=== PATIENT | female | born 1980 | race Caucasian/White ===

== ENCOUNTER 2016-07-09 09:58 | Inpatient (IN) | payer OTHER ==
[2016-07-09 10:05] VITALS: BMI 19.7
--- NOTE | 2016-07-09 10:07 | PDOC ---
History of Present Illness <Mounika Epps - Last Filed: 07/09/16 13:15> - General History Source: Patient Exam Limitations: No Limitations - History of Present Illness Initial Comments: 07/09/16 10:56 The pt is a 35 year old female with a significant PMH of Common Variable Immunodeficiency, membranous glomerulopathy, chronic migraines, asthma, HDL who presents to the ED complaining of fever, chills, headache that started 5 days ago. Temp at home today was 102F. She has been taking Tylenol since her fever started and visited her PCP yesterday and was told that her WBC is low and to come to ED if her symptoms worsen. She also has been vomiting everyday, non bloody, non bilious, has dizziness and swollen gums on left side. She denies chest pain, SOB, abdominal pain, dysuria, N/V, diarrhea. <Linda Andersen - Last Filed: 07/09/16 14:26> - General Chief Complaint: Respiratory Stated Complaint: FEVER (PCP SENT) Time Seen by Provider: 07/09/16 10:04 Past History - Past Medical History Comment:: Common Variable Immunodeficiency, membranous glomerulonephropathy <Mounika Epps - Last Filed: 07/09/16 13:15> - Past Medical History Anemia: No Asthma: Yes Cancer: No Cardiac Disorders: Yes (MURMUR) CVA: (H/O MIGRAINE HEADACHES) COPD: No CHF: No Dementia: No Diabetes: No GI Disorders: No Disorders: Yes (NEPHROTIC SYNDROME) HTN: No Hypercholesterolemia: No Liver Disease: No Psychiatric Problems: Yes (depression) Suicide Attempt (Hx): No Seizures: No Thyroid Disease: No Other medical history: mebraines glumeral nephritis, common variable immuny deficency - Surgical History Abdominal Surgery: No Appendectomy: Yes Cardiac Surgery: No Cholecystectomy: No Lung Surgery: No Neurologic Surgery: No Orthopedic Surgery: No - Psycho/Social/Smoking Cessation Hx Anxiety: No Suicidal Ideation: No Smoking Status: No Smoking History: Never smoked Years of Tobacco Use: 0 Have you smoked in the past 12 months: No Number of Cigarettes Smoked Daily: 0 Cigars Per Day: 0 Information on smoking cessation initiated: No Hx Alcohol Use: No Drug/Substance Use Hx: No Substance Use Type: None Hx Substance Use Treatment: No <Linda Andersen - Last Filed: 07/09/16 14:26> - Past Medical History Allergies/Adverse Reactions: Allergies Allergy/AdvReac Type Severity Reaction Status Date / Time theophylline [Theophylline] Allergy Severe Verified 07/09/16 10:00 metoclopramide HCl Allergy Verified 07/09/16 10:00 [From Reglan] Metronidazole HCl Allergy Rash Verified 07/09/16 10:00 [From Flagyl] Home Medications: Ambulatory Orders Immun Glob G(IgG)/Pro/Iga 0-50 [Hizentra 2 Gram/10 ml Vial] 50 ml SQ WEEKLY #0 ml 04/04/12 Cyclosporine [Restasis] 1 drop OU BID 07/04/15 Mometasone/Formoterol [Dulera 100 Mcg/5 Mcg Inhaler] 2 puff IH BID 07/04/15 Review of Systems - Review of Systems Constitutional: Yes: Fever, Malaise, Weakness HEENTM: No: Throat Pain Respiratory: No: Shortness of Breath, Wheezing Cardiac (ROS): No: Chest Pain, Irregular Heart Rate, Palpitations ABD/GI: Yes: Vomiting (once today, non bilious, non bloody). No: Diarrhea, Nausea : No: Dysuria, Urgency Musculoskeletal: No: Muscle Pain Neurological: Yes: Headache <Linda Andersen - Last Filed: 07/09/16 14:26> *Physical Exam - Vital Signs Last Vital Signs Temp Pulse Resp BP Pulse Ox 100.1 F H 130 H 20 110/80 99 07/09/16 11:30 07/09/16 11:30 07/09/16 11:30 07/09/16 11:30 07/09/16 11:30 <Mounika Epps - Last Filed: 07/09/16 13:15> - Vital Signs Last Vital Signs Temp Pulse Resp BP Pulse Ox 99.8 F H 150 H 20 113/99 100 07/09/16 10:01 07/09/16 10:01 07/09/16 10:01 07/09/16 10:01 07/09/16 10:01 - Physical Exam Comments: 07/09/16 10:45 GENERAL: The patient is awake, alert, and fully oriented, in no acute distress. HEAD: Normal with no signs of trauma. EYES: PERRL, extraocular movements intact, sclera anicteric, conjunctiva clear. No ptosis. ENT: Ears normal, nares patent, oropharynx clear without exudates, moist mucous membranes. NECK: Trachea midline, full range of motion, supple. LUNGS: Breath sounds equal, clear to auscultation bilaterally, no wheezes, no crackles, no accessory muscle use. HEART: tachycardic, S1, S2 without murmur, rub or gallop. ABDOMEN: Soft, nontender, nondistended, normoactive bowel sounds, no guarding, no rebound, no hepatosplenomegaly, no masses. EXTREMITIES: 2+ pulses, warm, well-perfused, no edema. NEUROLOGICAL: Normal speech, no facial asymmetry, gait not observed. PSYCH: Normal mood, normal affect. SKIN: Warm, dry, normal turgor, no rashes or lesions noted <JuandougAndrewNicjhonnyLinda - Last Filed: 07/09/16 14:26> Heart Score/ECG Review - History History: Moderately suspicious - Electrocardiogram EKG: Normal - Age Age: </= 45 - Risk Factors Risk Factors Heart Score: Yes Hx Hypercholesterolemia Based on the list above the patient has:: 1-2 risk factors - ECG Intrepretation Rhythm: Regular Rhythm - [place]: Normal - ECG Impressions Normal ECG: No Non-specific ST Elevation: No Ischemic Changes: No Tachycardia: Sinus <JarredNicjhonnyLinda - Last Filed: 07/09/16 14:26> ED Treatment Course - LABORATORY CBC & Chemistry Diagram: 07/09/16 10:50 07/09/16 10:50 - ADDITIONAL ORDERS Additional order review: Laboratory Results 07/09/16 07/09/16 07/09/16 10:50 10:50 10:50 Sodium 138 Potassium 3.6 Chloride 101 Carbon Dioxide 28 Anion Gap 9 BUN 5 L D Creatinine 0.6 Creat Clearance w eGFR > 60 Random Glucose 106 Lactic Acid 0.670 Calcium 8.5 Total Bilirubin 0.5 D AST 12 L D ALT 17 D Alkaline Phosphatase 100 Total Protein 6.5 Albumin 3.3 L Serum , Qual Negative 07/09/16 10:50 RBC 4.73 MCV 78.3 L MCHC 34.1 RDW 12.6 MPV 7.6 Neutrophils % 2.0 L Lymphocytes % 47.0 H D Monocytes % 47.0 H D Eosinophils % 2.0 - Medications Given in the ED: ED Medications Discontinued Medications Generic Name Dose Route Start Last Admin Trade Name Enoc PRN Reason Stop Dose Admin Acetaminophen 650 mg 07/09/16 11:00 07/09/16 11:09 Tylenol - PO 07/09/16 11:01 650 mg ONCE ONE Administration Sodium Chloride 1,000 mls @ 1,000 mls/hr 07/09/16 10:53 07/09/16 11:09 Normal Saline - IV 07/09/16 11:52 1,000 mls/hr ASDIR STA Administration <Mounika Epps - Last Filed: 07/09/16 13:15> - LABORATORY CBC & Chemistry Diagram: 07/09/16 10:50 07/09/16 10:50 <Linda Andersen - Last Filed: 07/09/16 14:26> Medical Decision Making - Medical Decision Making 07/09/16 11:08 Ordered CMP, BMP, LA, Tylenol, 1L NS, EKG, test 07/09/16 13:12 THe pt was signed off to admitting team by Dr. Epps <Linda Andersen - Last Filed: 07/09/16 14:26> *DC/Admit/Observation/Transfer - Discharge Dispostion Admit: Yes <Mounika Epps - Last Filed: 07/09/16 13:15> <Linda Andersen - Last Filed: 07/09/16 14:26> Diagnosis at time of Disposition: Neutropenic fever - Discharge Dispostion Condition at time of disposition: Stable - Referrals
--- NOTE | 2016-07-09 10:08 | PDOC ---
Attending Attestation - Resident Resident Name: GaneshLinda - ED Attending Attestation I have performed the following: I have examined & evaluated the patient, The case was reviewed & discussed with the resident, I agree w/resident's findings & plan, Exceptions are as noted - HPI HPI: 35 yo F history CVID (on home immunoglobulin injections) presenting with flu. She was sent by primary care physician after found to have low WBC count. She has had fever with nausea, stomach upset, diarrhea. No vomiting. Denies cp, SOB. She saw her PMD, who ordered a CXR (negative), flu swab (negative), and labs. Labs showed low WBC. Patient sent for evaluation for poss neutropenic fever. - Physicial Exam PE: GENERAL: Awake, alert, and fully oriented, in no acute distress. Well-appearing. HEAD: No signs of trauma EYES: PERRLA, EOMI, sclera anicteric, conjunctiva clear ENT: Auricles normal inspection, hearing grossly normal, nares patent, oropharynx clear without exudates. Dry mucosa NECK: Normal ROM, supple, no lymphadenopathy, JVD, or masses LUNGS: Breath sounds equal, clear to auscultation bilaterally. No wheezes, and no crackles HEART: Tachycardic, normal S1 and S2, no murmurs, rubs or gallops ABDOMEN: Soft, nontender, normoactive bowel sounds. No guarding, no rebound. No masses EXTREMITIES: Normal range of motion, no edema. No clubbing or cyanosis. No cords, erythema, or tenderness NEUROLOGICAL: Cranial nerves II through XII grossly intact. Normal speech, normal gait SKIN: Warm, Dry, normal turgor, no rashes or lesions noted. - Medical Decision Making Patient with neutropenic fever, history CVID. CHAUDHARY treated with tylenol, imitrex ( normally she takes maxalt at home). Zofran for nausea. Tachycardia improving with IV fluids. Will give cefepime empirically. Will consult with ID, hematology. For admission.
[2016-07-09] MEDS ORDERED: SODIUM CHLORIDE 1,000 ML IV STA (10:53)
[2016-07-09] MEDS ORDERED: ACETAMINOPHEN 325 MG TABLET (FP) PO ONE (11:00)
[2016-07-09] MEDS ORDERED: ACETAMINOPHEN 325 MG TABLET (FP) ONE (11:01)
[2016-07-09 11:04] LABS: MCH 26.7 pg (25.7-33.7); MCHC 34.1 g/dl (32.0-36.0); MEAN CELL VOLUME 78.3 fl (80-96); MEAN PLT VOLUME 7.6 fl (7.5-11.1); PLATELET COUNT 180 K/MM3 (134-434); RDW 12.6 % (11.6-15.6); WHITE BLOOD COUNT 2.3 K/mm3 (4.0-10.0)
[2016-07-09 11:49] LABS: ALBUMIN 3.3 g/dl (3.4-5.0); ALK PHOS 100 U/L (45-117); ANION GAP 9 (8-16); BILIRUBIN,TOTAL 0.5 mg/dL (0.2-1.0); CALCIUM 8.5 mg/dL (8.5-10.1); CO2 28 mmol/L (21-32); CREATININE 0.6 mg/dL (0.55-1.02); GLUCOSE,RANDOM 106 mg/dL (74-106); SGOT/AST 12 U/L (15-37); SGPT/ALT 17 U/L (12-78); TOT PROT 6.5 g/dl (6.4-8.2)
[2016-07-09 12:02] LABS: PLATELET ESTIMATE ADEQUATE (NORMAL)
[2016-07-09] MEDS ORDERED: ONDANSETRON 4 MG/2 ML VIAL IVPUSH ONE (12:14)
[2016-07-09] MEDS ORDERED: TUBERCULIN PPD 5 TU/0.1ML SYRINGE (IN PATIENT USE ONLY) ID ONE (12:15)
[2016-07-09] MEDS ORDERED: ONDANSETRON 4 MG/2 ML VIAL ONE (12:22)
[2016-07-09] MEDS ORDERED: CEFEPIME HCL 2 GM VIAL (RESTRICTED TO ID) IVPB ONE (12:29)
[2016-07-09 12:38] LABS: URINE APPEARANCE CLEAR; URINE BILIRUBIN NEGATIVE (NEGATIVE); URINE BLOOD NEGATIVE (NEGATIVE); URINE GLUCOSE (UA) NEGATIVE (NEGATIVE); URINE KETONE TRACE (NEGATIVE); URINE NITRITE NEGATIVE (NEGATIVE); URINE UROBILINOGEN 2.0 E.U/dl E.U./dl (0.2-1.0)
[2016-07-09 12:43] LABS: URINE COLOR DK YELLOW; URINE LEUK ESTERASE TRACE (NEGATIVE); URINE PROTEIN 1+ (NEGATIVE)
[2016-07-09 12:49] LABS: URINE MUCUS MANY; URINE RBC 1 /hpf (0-3); URINE WBC 4 /hpf (3-5)
--- NOTE | 2016-07-09 13:36 | HP ---
Admitting History and Physical - Primary Care Physician PCP: Patricia Todd - Admission Chief Complaint: I'm having fevers History of Present Illness: Ms Cobb is a 35 year old female who comes in with fevers. She says the fevers began 1 week ago. She states that they were as high as 102.5. She had headache associated with the fevers. She had nausea with vomiting as well. Because of this, she was unable to eat much food. She also had myalgias associated with it. She denies rhinorrhea, congestion, sore throat, or productive cough. She saw her author's agent who prescribed augmentin, however she was unable to take it secondary to the nausea. The fevers and headaches continued and she came in for further evaluation. She denies lightheadedness, dizziness, passing out, chest pain, shortness of breath, abdominal pain, diarrhea, pain or difficulty urinating, or swelling. History Source: Patient Limitations to Obtaining History: No Limitations - Past Medical History MECHANIC AND WELDER: Yes: Migraine Pulmonary: Yes: Asthma Renal/: Yes: Other (membranous glomerulonephritis-remission) ...LMP: 06/18/15 Rheumatology: Yes: Other (Common Variable Immunodeficiency) - Past Surgical History Past Surgical History: Yes: Appendectomy - Smoking History Smoking history: Never smoked Have you smoked in the past 12 months: No Aproximately how many cigarettes per day: 0 - Alcohol/Substance Use Hx Alcohol Use: No History of Substance Use: reports: None - Social History ADL: Independent History of Recent Travel: No Home Medications - Allergies Allergies/Adverse Reactions: Allergies Allergy/AdvReac Type Severity Reaction Status Date / Time theophylline [Theophylline] Allergy Severe Verified 07/09/16 10:00 metoclopramide HCl Allergy Verified 07/09/16 10:00 [From Reglan] Metronidazole HCl Allergy Rash Verified 07/09/16 10:00 [From Flagyl] - Home Medications Home Medications: Ambulatory Orders Immun Glob G(IgG)/Pro/Iga 0-50 [Hizentra 2 Gram/10 ml Vial] 50 ml SQ WEEKLY #0 ml 04/04/12 Cyclosporine [Restasis] 1 drop OU BID 07/04/15 Mometasone/Formoterol [Dulera 100 Mcg/5 Mcg Inhaler] 2 puff IH BID 07/04/15 Family Disease History - Family Disease History Family Disease History: Diabetes: Father, Other: Mother (HTN, Pulm HTN) Review of Systems Findings/Remarks: Full review of systems obtained, as per HPI and otherwise negative. Physical Examination Vital Signs: Vital Signs Temperature 100.1 F H 07/09/16 11:30 Pulse Rate 114 H 07/09/16 12:35 Respiratory Rate 18 07/09/16 12:35 Blood Pressure 114/63 07/09/16 12:35 O2 Sat by Pulse Oximetry (%) 99 07/09/16 12:35 Constitutional: Yes: Well Nourished, Calm, Mild Distress Eyes: Yes: Conjunctiva Clear, EOM Intact, PERRL HENT: Yes: Atraumatic, Normocephalic Cardiovascular: Yes: Tachycardia. No: Pulse Irregular, Gallop, Murmur, Rub Respiratory: Yes: Regular, CTA Bilaterally. No: Rales, Rhonchi, Wheezes Gastrointestinal: Yes: Normal Bowel Sounds, Soft. No: Distention, Tenderness Extremities: Yes: WNL Edema: No Labs: Laboratory Results - last 24 hr 07/09/16 07/09/16 07/09/16 10:50 10:50 10:50 WBC 2.3 L D RBC 4.73 Hgb 12.6 D Hct 37.1 MCV 78.3 L MCHC 34.1 RDW 12.6 Plt Count 180 D MPV 7.6 Neutrophils % 2.0 L Lymphocytes % 47.0 H D Monocytes % 47.0 H D Eosinophils % 2.0 Band Neutrophils 1.0 Reactive Lymphocytes 2 Platelet Estimate Adequate Platelet Comment No clumping noted Sodium 138 Potassium 3.6 Chloride 101 Carbon Dioxide 28 Anion Gap 9 BUN 5 L D Creatinine 0.6 Creat Clearance w eGFR > 60 Random Glucose 106 Lactic Acid 0.670 Calcium 8.5 Total Bilirubin 0.5 D AST 12 L D ALT 17 D Alkaline Phosphatase 100 Total Protein 6.5 Albumin 3.3 L Serum , Qual Urine Color Urine Appearance Urine pH Ur Specific Mallie Urine Protein Urine Glucose (UA) Urine Ketones Urine Blood Urine Nitrite Urine Bilirubin Urine Urobilinogen Ur Leukocyte Esterase Urine RBC Urine WBC Ur Epithelial Cells Urine Mucus 07/09/16 07/09/16 10:50 12:23 WBC RBC Hgb Hct MCV MCHC RDW Plt Count MPV Neutrophils % Lymphocytes % Monocytes % Eosinophils % Band Neutrophils Reactive Lymphocytes Platelet Estimate Platelet Comment Sodium Potassium Chloride Carbon Dioxide Anion Gap BUN Creatinine Creat Clearance w eGFR Random Glucose Lactic Acid Calcium Total Bilirubin AST ALT Alkaline Phosphatase Total Protein Albumin Serum , Qual Negative Urine Color Dk yellow Urine Appearance Clear Urine pH 5.0 Ur Specific Mallie 1.024 Urine Protein 1+ H Urine Glucose (UA) Negative Urine Ketones Trace H Urine Blood Negative Urine Nitrite Negative Urine Bilirubin Negative Urine Urobilinogen 2.0 e.u/dl H Ur Leukocyte Esterase Trace H Urine RBC 1 Urine WBC 4 Ur Epithelial Cells Moderate Urine Mucus Many Problem List - Problems (1) Neutropenic fever Assessment/Plan: -patient presents with neutropenic fever -ID consulted -suspect viral, however may be bacterial -given cefepime in the ED, continue per ID Code(s): D70.9 - NEUTROPENIA, UNSPECIFIED R50.81 - FEVER PRESENTING WITH CONDITIONS CLASSIFIED ELSEWHERE (2) Common variable immunodeficiency Assessment/Plan: -consult hematology and rheumatology -continue hyzentra unless otherwise indicated by above consultants Code(s): D83.9 - COMMON VARIABLE IMMUNODEFICIENCY, UNSPECIFIED (3) Intractable migraine Assessment/Plan: -case d/w neurology -imitrex -if persistent, will need head CT Code(s): G43.919 - MIGRAINE, UNSP, INTRACTABLE, WITHOUT STATUS MIGRAINOSUS Qualifiers: Migraine type: abdominal Qualified Code(s): G43.D1 - Abdominal migraine , intractable (4) Asthma Assessment/Plan: -continue dulera -not in exacerbation Code(s): J45.909 - UNSPECIFIED ASTHMA, UNCOMPLICATED
--- NOTE | 2016-07-09 13:40 | PN ---
Progress Note, Physician Chief Complaint: ID Full note dictated 35 year old female CVID gets sq immunoglob injected weekly presents with now 6 days intermittent fevers and chills. Saw her PMD yesterday and told had low WBC count. Blood cultures drawn at PMD. Notes intermittent headaches. NO couph coryza abd pain diarrhea did have few episodes of vomiting this subsided. Lives with family and no one else ill. No travel or HIV risls tested neg in past. No sorethroat Influenza screen was neg and throat rapid strep neg. Pets 4 dogs and 2 cats. - Current Medication List Current Medications: Active Medications Acetaminophen (Tylenol -) 650 mg PO Q4H PRN PRN Reason: FEVER OR PAIN Sodium Chloride (Normal Saline -) 1,000 mls @ 75 mls/hr IV ASDIR TING Non-Formulary Medication (Cyclosporine [Restasis]) 1 drop OU BID TING Non-Formulary Medication (Immun Glob G(Igg)/Pro/Iga 0-50 [Hizentra 2 Gram/10 Ml Vial]) 50 ml SQ FR TING Non-Formulary Medication (Mometasone/Formoterol [Dulera 100 Mcg/5 Mcg Inhaler]) 2 puff IH BID TING Ondansetron HCl (Zofran Injection) 4 mg IVPB Q6H PRN PRN Reason: NAUSEA Oxycodone HCl (Roxicodone -) 5 mg PO Q6H PRN PRN Reason: PAIN - Objective Vital Signs: Vital Signs Temperature 100.1 F H 07/09/16 11:30 Pulse Rate 114 H 07/09/16 12:35 Respiratory Rate 18 07/09/16 12:35 Blood Pressure 114/63 07/09/16 12:35 O2 Sat by Pulse Oximetry (%) 99 07/09/16 12:35 Constitutional: Yes: Thin Eyes: Yes: WNL, Conjunctiva Clear HENT: Yes: Other (TMs look normal). No: Pharyngeal Erythema Neck: Yes: WNL, Supple, Other (Few cervical tender nodes anterior) Respiratory: Yes: WNL, Regular, CTA Bilaterally Gastrointestinal: Yes: WNL, Normal Bowel Sounds, Soft. No: Tenderness Edema: No Problem List - Problems (1) FUO (fever of unknown origin) Code(s): R50.9 - FEVER, UNSPECIFIED (2) Viral illness Code(s): B34.9 - VIRAL INFECTION, UNSPECIFIED (3) Common variable immunodeficiency Code(s): D83.9 - COMMON VARIABLE IMMUNODEFICIENCY, UNSPECIFIED Assessment/Plan Microbiology Laboratory Tests 07/09/16 07/09/16 07/09/16 10:50 10:50 12:23 WBC 2.3 L D Plt Count 180 D Neutrophils % 2.0 L Lymphocytes % 47.0 H D Monocytes % 47.0 H D Reactive Lymphocytes 2 BUN 5 L D Creatinine 0.6 Total Bilirubin 0.5 D AST 12 L D ALT 17 D Urine RBC 1 Urine WBC 4 Assessment Suspect viral illness in the setting of CVIG. Given Augmentin but never took it. High index of suspicion for infectious etiology given immune dysregulation. NO infiltrate seen Of note Leukopenic with low ANC count but not a matter of bone marrow production but increase in lymphs and monos most likely secondary to viral illness. Consider CMV EBV Toxo because of her cats. Empiric coverage with Cefepime and obtain hematology evaluation Jd DE LOS SANTOS
[2016-07-09] MEDS ORDERED: CEFEPIME 100 ML IVPB ONE (13:53)
[2016-07-09] MEDS: SODIUM CHLORIDE 1,000 ML IV SCH ×2 (13:54→20:57)
--- NOTE | 2016-07-09 13:55 | CONSULT ---
Consult - text type - Consultation Consultation Note: The pt is a 35 year old female with a significant PMH of Common Variable Immunodeficiency, membranous glomerulonephritis, chronic migraines, asthma, Hyperlipidemia, who presents to the ED complaining of fever, chills, headache that started 5 days ago. Temp at home today was 102F. She has been taking Tylenol since her fever started and visited her PCP yesterday and was told that her WBC is low and to come to ED if her symptoms worsen. She also has been vomiting everyday,associated with her migraines. She denies chest pain, SOB, abdominal pain, dysuria, N/V, diarrhea. - Past Medical History Asthma: Yes Cardiac Disorders: Yes (MURMUR) CVA: (H/O MIGRAINE HEADACHES) Disorders: Yes (NEPHROTIC SYNDROME) Psychiatric Problems: Yes (depression) Other medical history: mebraines glumeral nephritis, common variable immuny deficency - Surgical History Appendectomy: Yes - Psycho/Social/Smoking Cessation Hx Smoking History: Never smoked - Past Medical History Comment:: Common Variable Immunodeficiency, membranous glomerulonephropathy h/o acquired hemophilia - Past Medical History Allergies/Adverse Reactions: Allergies Allergy/AdvReac Type Severity Reaction Status Date / Time theophylline [Theophylline] Allergy Severe Verified 07/09/16 10:00 metoclopramide HCl Allergy Verified 07/09/16 10:00 [From Reglan] Metronidazole HCl Allergy Rash Verified 07/09/16 10:00 [From Flagyl] Home Medications: Ambulatory Orders Immun Glob G(IgG)/Pro/Iga 0-50 [Hizentra 2 Gram/10 ml Vial] 50 ml SQ WEEKLY #0 ml 04/04/12 Cyclosporine [Restasis] 1 drop OU BID 07/04/15 Mometasone/Formoterol [Dulera 100 Mcg/5 Mcg Inhaler] 2 puff IH BID 07/04/15 Current Medications Acetaminophen (Tylenol -) 650 mg PO Q4H PRN PRN Reason: FEVER OR PAIN Sodium Chloride (Normal Saline -) 1,000 mls @ 75 mls/hr IV ASDIR TING Non-Formulary Medication (Cyclosporine [Restasis]) 1 drop OU BID TING Non-Formulary Medication (Immun Glob G(Igg)/Pro/Iga 0-50 [Hizentra 2 Gram/10 Ml Vial]) 50 ml SQ FR TING Non-Formulary Medication (Mometasone/Formoterol [Dulera 100 Mcg/5 Mcg Inhaler]) 2 puff IH BID TING Ondansetron HCl (Zofran Injection) 4 mg IVPB Q6H PRN PRN Reason: NAUSEA Oxycodone HCl (Roxicodone -) 5 mg PO Q6H PRN PRN Reason: PAIN - Vital Signs Last Vital Signs Temp Pulse Resp BP Pulse Ox 99.8 F H 150 H 20 113/99 100 07/09/16 10:01 07/09/16 10:01 07/09/16 10:01 07/09/16 10:01 07/09/16 10:01 HEENT: LUNA, EOM Intact Oropharynx: No thrush, No mucositisy Cor: RSR, No murmurs, No gallops Lungs: Clear to P&A Abd: Soft, Normal bowel sounds, No organomegaly Ext:No significant edema Skin: No rashes, Integument intact Abnormal Lab Results 07/09/16 07/09/16 07/09/16 10:50 10:50 12:23 WBC 2.3 L D MCV 78.3 L Neutrophils % 2.0 L Lymphocytes % 47.0 H D Monocytes % 47.0 H D BUN 5 L D AST 12 L D Albumin 3.3 L Urine Protein 1+ H Urine Ketones Trace H Urine Urobilinogen 2.0 e.u/dl H Ur Leukocyte Esterase Trace H A/P 35 y/o patient wtih h/o common variable immunodeficiency, on SC IgG replacements at home, also with membranous glomerulonephritis with h/o rituxan last in 09/14, now comes in with fevers. No localizing signs/symptoms CBC shows neutropenia with relative lympho/monocytosis also reports tender gums reports migraine headaches and nausea/vomiting will review smear check immunoglobulin levels disucssed with ID team consider neurology consult
[2016-07-09] MEDS ORDERED: SUMAtriptan SUCCINATE 25 MG TABLET PO ONE (14:14)
--- NOTE | 2016-07-09 15:10 | CONSULT ---
Consult - text type - Consultation Consultation Note: Neurology The pt is a 35 year old female with a significant PMH of Common Variable Immunodeficiency, membranous glomerulopathy, chronic migraines, asthma, HDL who presents to the ED complaining of fever, chills, headache that started 5 days ago. She tpyically takes Maxalt which often works for her at 10mg. She had tried Fioricet in the past and caused a rash. Her headaches are episodic and does not require daily medication. Past History - Past Medical History Comment:: Common Variable Immunodeficiency, membranous glomerulonephropathy - Past Medical History Anemia: No Asthma: Yes Cancer: No Cardiac Disorders: Yes (MURMUR) CVA: (H/O MIGRAINE HEADACHES) COPD: No CHF: No Dementia: No Diabetes: No GI Disorders: No Disorders: Yes (NEPHROTIC SYNDROME) HTN: No Hypercholesterolemia: No Liver Disease: No Psychiatric Problems: Yes (depression) Suicide Attempt (Hx): No Seizures: No Thyroid Disease: No Other medical history: mebraines glumeral nephritis, common variable immuny deficency - Surgical History Abdominal Surgery: No Appendectomy: Yes Cardiac Surgery: No Cholecystectomy: No Lung Surgery: No Neurologic Surgery: No Orthopedic Surgery: No - Psycho/Social/Smoking Cessation Hx Anxiety: No Suicidal Ideation: No Smoking Status: No Smoking History: Never smoked Years of Tobacco Use: 0 Have you smoked in the past 12 months: No Number of Cigarettes Smoked Daily: 0 Cigars Per Day: 0 Information on smoking cessation initiated: No Hx Alcohol Use: No Drug/Substance Use Hx: No Substance Use Type: None Hx Substance Use Treatment: No Allergies/Adverse Reactions: Allergies Allergy/AdvReac Type Severity Reaction Status Date / Time theophylline [Theophylline] Allergy Severe Verified 07/09/16 10:00 metoclopramide HCl Allergy Verified 07/09/16 10:00 [From Reglan] Metronidazole HCl Allergy Rash Verified 07/09/16 10:00 [From Flagyl] Home Medications: Ambulatory Orders Immun Glob G(IgG)/Pro/Iga 0-50 [Hizentra 2 Gram/10 ml Vial] 50 ml SQ WEEKLY #0 ml 04/04/12 Cyclosporine [Restasis] 1 drop OU BID 07/04/15 Mometasone/Formoterol [Dulera 100 Mcg/5 Mcg Inhaler] 2 puff IH BID 07/04/15 Review of Systems - Review of Systems Constitutional: Yes: Fever, Malaise, Weakness HEENTM: No: Throat Pain Respiratory: No: Shortness of Breath, Wheezing Cardiac (ROS): No: Chest Pain, Irregular Heart Rate, Palpitations ABD/GI: Yes: Vomiting (once today, non bilious, non bloody). No: Diarrhea, Nausea : No: Dysuria, Urgency Musculoskeletal: No: Muscle Pain Neurological: Yes: Headache *Physical Exam Last Vital Signs Temp Pulse Resp BP Pulse Ox 99.8 F H 150 H 20 113/99 100 07/09/16 10:01 07/09/16 10:01 07/09/16 10:01 07/09/16 10:07/09/16 10:01 GENERAL: The patient is awake, alert, and fully oriented, in no acute distress. HEAD: Normal with no signs of trauma. EYES: PERRL, extraocular movements intact, sclera anicteric, conjunctiva clear. No ptosis. ENT: Ears normal, nares patent, oropharynx clear without exudates, moist mucous membranes. NECK: Trachea midline, full range of motion, supple. LUNGS: Breath sounds equal, clear to auscultation bilaterally, no wheezes, no crackles, no accessory muscle use. HEART: tachycardic, S1, S2 without murmur, rub or gallop. ABDOMEN: Soft, nontender, nondistended, normoactive bowel sounds, no guarding, no rebound, no hepatosplenomegaly, no masses. EXTREMITIES: 2+ pulses, warm, well-perfused, no edema. NEUROLOGICAL: Normal speech, no facial asymmetry, gait not observed. PSYCH: Normal mood, normal affect. SKIN: Warm, dry, normal turgor, no rashes or lesions noted Laboratory Results 07/09/16 07/09/16 07/09/16 10:50 10:50 10:50 Sodium 138 Potassium 3.6 Chloride 101 Carbon Dioxide 28 Anion Gap 9 BUN 5 L D Creatinine 0.6 Creat Clearance w eGFR > 60 Random Glucose 106 Lactic Acid 0.670 Calcium 8.5 Total Bilirubin 0.5 D AST 12 L D ALT 17 D Alkaline Phosphatase 100 Total Protein 6.5 Albumin 3.3 L Serum , Qual Negative 07/09/16 10:50 RBC 4.73 MCV 78.3 L MCHC 34.1 RDW 12.6 MPV 7.6 Neutrophils % 2.0 L Lymphocytes % 47.0 H D Monocytes % 47.0 H D Eosinophils % 2.0 Medical Decision Making 35 year old female with a significant PMH of Common Variable Immunodeficiency, membranous glomerulopathy, chronic migraines, asthma, HDL who presents to the ED complaining of fever, chills, headache that started 5 days ago. She tpyically takes Maxalt which often works for her at 10mg. She had tried Fioricet in the past and caused a rash. Her headaches are episodic and does not require daily medication. I would recommend continuing Maxalt 10mg up to twice a day. Higher doses not recommended. Fioricet causes rash and would avoid this. If maxalt not available, can give Imitrex. If this is not effective, can give injection of toradol. Should subside as underlying illness improves.
[2016-07-09 17:20] LABS: HIV 1 & 2 AB NEGATIVE; HIV 1 AGp24 NEGATIVE
[2016-07-09] MEDS ORDERED: CEFEPIME HCL 2 GM VIAL (RESTRICTED TO ID) IVPB SCH (18:00)
[2016-07-09] MEDS ORDERED: PT OWN MED DRAWER 7, Y5N ONE (20:16)
[2016-07-09] MEDS: CEFEPIME 2 GM in DEXTROSE 5%-WATER - 100 ML IVPB SCH (20:30)
[2016-07-09] MEDS ORDERED: diphenhydrAMINE HCL 25 MG CAPSULE (FP) PO PRN (22:24)
[2016-07-09] MEDS: CYCLOSPORINE OU SCH (22:52)
[2016-07-10] MEDS: ACETAMINOPHEN 325 MG TABLET (FP) PO PRN ×3 (02:27→22:06)
[2016-07-10] MEDS: CEFEPIME 2 GM in DEXTROSE 5%-WATER - 100 ML IVPB SCH ×3 (02:52→18:59)
[2016-07-10] MEDS: oxyCODONE HCL 5 MG TABLET PO PRN ×2 (06:26→12:53)
[2016-07-10 08:42] LABS: MCH 27.1 pg (25.7-33.7); MCHC 34.4 g/dl (32.0-36.0); MEAN CELL VOLUME 78.9 fl (80-96); PLATELET COUNT 157 K/MM3 (134-434); RDW 12.5 % (11.6-15.6); WHITE BLOOD COUNT 2.6 K/mm3 (4.0-10.0)
[2016-07-10] MEDS: PATIENT'S OWN MEDICATION (NON-FORMULARY) (Mometasone/Formoterol [Dulera 100 Mcg/5 Mcg Inha IH SCH ×2 (08:56→10:36)
[2016-07-10 08:58] LABS: INR 1.12 (0.82-1.09); PROTHROMBIN TIME (PATIENT) 12.3 SEC (9.98-11.88)
[2016-07-10 09:00] LABS: ACTIVATED PTT 30.9 SECONDS (26.9-34.4)
[2016-07-10 09:29] LABS: FREE T4 1.3 ng/dl (0.76-1.46)
[2016-07-10 09:57] LABS: C-REACTIVE PROTEIN 3.9 MG/DL (0.00-0.3)
[2016-07-10 10:09] LABS: ALBUMIN 2.9 g/dl (3.4-5.0); ALK PHOS 87 U/L (45-117); ANION GAP 8 (8-16); BILIRUBIN,TOTAL 0.5 mg/dL (0.2-1.0); CALCIUM 8.3 mg/dL (8.5-10.1); CO2 29 mmol/L (21-32); CREATININE 0.5 mg/dL (0.55-1.02); GLUCOSE,RANDOM 95 mg/dL (74-106); PHOSPHOROUS 2.6 mg/dL (2.5-4.9); SGOT/AST 9 U/L (15-37); SGPT/ALT 14 U/L (12-78); THYROID STIMULATING HORMONE 1.08 uIU/ml (0.358-3.74); TOT PROT 5.9 g/dl (6.4-8.2)
[2016-07-10] MEDS: ONDANSETRON 4 MG/2 ML VIAL IVPB PRN (10:33)
[2016-07-10] MEDS: CYCLOSPORINE OU SCH ×2 (10:35→22:09)
--- NOTE | 2016-07-10 11:18 | PN ---
Progress Note, Physician Chief Complaint: Ms Cobb complains of not feeling well. Still with migraine and nausea. No cp or sob. - Current Medication List Current Medications: Active Medications Acetaminophen (Tylenol -) 650 mg PO Q4H PRN PRN Reason: FEVER OR PAIN Last Admin: 07/10/16 02:27 Dose: 650 mg Diphenhydramine HCl (Benadryl Injection -) 12.5 mg IVPUSH Q4H PRN PRN Reason: FOR ITCHING Sodium Chloride (Normal Saline -) 1,000 mls @ 75 mls/hr IV ASDIR TING Last Admin: 07/09/16 20:57 Dose: 75 mls/hr Cefepime HCl 2 gm/ Dextrose 100 mls @ 200 mls/hr IVPB Q8H-IV TING Last Admin: 07/10/16 02:52 Dose: 200 mls/hr Cyclosporine [ Restasis] Ophth Drops 1 drop OU BID TING Last Admin: 07/10/16 10:35 Dose: 1 drop Immun Glob G(Igg)/Pro/Iga 0-50 [ Hizentra] 50 ml SQ FR TING Non-Formulary Medication (Mometasone/Formoterol [Dulera 100 Mcg/5 Mcg Inhaler]) 2 puff IH BID [facility] Last Admin: 07/10/16 10:36 Dose: Not Given Ondansetron HCl (Zofran Injection) 4 mg IVPB Q6H PRN PRN Reason: NAUSEA Last Admin: 07/10/16 10:33 Dose: 4 mg Oxycodone HCl (Roxicodone -) 5 mg PO Q6H PRN PRN Reason: PAIN Last Admin: 07/10/16 06:26 Dose: 5 mg - Objective Vital Signs: Vital Signs Temperature 99.3 F 07/10/16 07:04 Pulse Rate 108 H 07/10/16 07:04 Respiratory Rate 18 07/10/16 07:04 Blood Pressure 114/69 07/10/16 07:04 O2 Sat by Pulse Oximetry (%) 99 07/09/16 21:00 Constitutional: Yes: Well Nourished, No Distress, Calm Cardiovascular: Yes: Regular Rate and Rhythm. No: Gallop, Murmur, Rub Respiratory: Yes: Regular, CTA Bilaterally. No: Rales, Rhonchi, Wheezes Gastrointestinal: Yes: Normal Bowel Sounds, Soft. No: Distention, Tenderness Extremities: Yes: WNL Edema: No Labs: CBC, BMP 07/10/16 06:15 07/10/16 06:15 INR, PTT INR 1.12 (0.82-1.09) 07/10/16 06:15 Fibrinogen 403.0 mg/dL (238-498) 07/10/16 06:15 Problem List - Problems (1) Neutropenic fever Code(s): D70.9 - NEUTROPENIA, UNSPECIFIED R50.81 - FEVER PRESENTING WITH CONDITIONS CLASSIFIED ELSEWHERE (2) Common variable immunodeficiency Code(s): D83.9 - COMMON VARIABLE IMMUNODEFICIENCY, UNSPECIFIED (3) Intractable migraine Code(s): G43.919 - MIGRAINE, UNSP, INTRACTABLE, WITHOUT STATUS MIGRAINOSUS Qualifiers: Migraine type: abdominal Qualified Code(s): G43.D1 - Abdominal migraine , intractable (4) Asthma Code(s): J45.909 - UNSPECIFIED ASTHMA, UNCOMPLICATED Assessment/Plan (1) Neutropenic fever Assessment/Plan: -still with severe neutropenia -however fevers currently resolved -continue empiric antibiotics per ID -follow up serologies -hematology following Code(s): D70.9 - NEUTROPENIA, UNSPECIFIED R50.81 - FEVER PRESENTING WITH CONDITIONS CLASSIFIED ELSEWHERE (2) Common variable immunodeficiency Assessment/Plan: -consult hematology and rheumatology -continue hyzentra unless otherwise indicated by above consultants Code(s): D83.9 - COMMON VARIABLE IMMUNODEFICIENCY, UNSPECIFIED (3) Intractable migraine Assessment/Plan: -case d/w neurology -will give trial of subcutaneous imitrex, patient says she has problem taking oral meds secondary to nausea Code(s): G43.919 - MIGRAINE, UNSP, INTRACTABLE, WITHOUT STATUS MIGRAINOSUS Qualifiers: Migraine type: abdominal Qualified Code(s): G43.D1 - Abdominal migraine , intractable (4) Asthma Assessment/Plan: -continue dulera -not in exacerbation Code(s): J45.909 - UNSPECIFIED ASTHMA, UNCOMPLICATED
[2016-07-10 11:52] LABS: ANISOCYTOSIS 1+; HYPOCHROMIA 1+; PLATELET COMMENT2 NO CLOTTING DETECTED; PLATELET ESTIMATE ADEQUATE (NORMAL)
[2016-07-10] MEDS ORDERED: SUMATRIPTAN SUCCINATE 6 MG/0.5 ML VIAL SQ ONE (12:15)
[2016-07-10] MEDS ORDERED: PT OWN MED DRAWER 7, Y5N ONE ×3 (12:31→19:25)
--- NOTE | 2016-07-10 13:30 | PN ---
Progress Note (short form) - Note Progress Note: Patient seen in follow up. No events overnight. Complaining of ongoing headache/migraine - not relieved with analgesia. Meds reviewed. Current Medications Generic Name Dose Route Start Last Admin Trade Name Freq PRN Reason Stop Dose Admin Acetaminophen 650 mg 07/09/16 13:30 07/10/16 02:27 Tylenol - PO 650 mg Q4H PRN Administration FEVER OR PAIN Diphenhydramine HCl 12.5 mg 07/10/16 11:16 Benadryl Injection - IVPUSH Q4H PRN FOR ITCHING Sodium Chloride 1,000 mls @ 75 mls/hr 07/09/16 13:30 07/09/16 20:57 Normal Saline - IV 75 mls/hr ASDIR TING Administration Cefepime HCl 2 gm/ Dextrose 100 mls @ 200 mls/hr 07/09/16 20:30 07/10/16 12:55 IVPB 200 mls/hr Q8H-IV TING Administration Cyclosporine [ 1 drop 07/09/16 22:00 07/10/16 10:35 Restasis] Ophth OU 1 drop Drops BID TING Administration Immun Glob G(Igg)/ 50 ml 07/16/16 10:00 Pro/Iga 0-50 [ SQ Hizentra] FR TING Non-Formulary Medication 2 puff 07/09/16 22:00 07/10/16 10:36 Mometasone/Formoterol [Dulera 100 Mcg/5 Mcg Inhaler] IH Not Given BID TING Ondansetron HCl 4 mg 07/09/16 13:30 07/10/16 10:33 Zofran Injection IVPB 4 mg Q6H PRN Administration NAUSEA Oxycodone HCl 5 mg 07/09/16 13:30 07/10/16 12:53 Roxicodone - PO 5 mg Q6H PRN Administration PAIN On exam: Well hydrated. Chest: clear Abdomen: Soft, not distended. CVS: S1, S2, no gallop or murmur. Skin: No rash Neuro: Alert, oriented. Non-focal. Extremities: No swelling. 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 Cultures negative. Afebrile during admission (?fever spike yesterday). Empiric Abics (cefepime). Can administer home regimen SQIg today. No obvious etiology for neutropenia - will continue to observe for now. May consider trial of GCSF if no improvement noted. Will review peripheral smear again. Neurology providing recommendations for ongoing headache - treated as for migraine.
--- NOTE | 2016-07-10 13:51 | PN ---
Progress Note (short form) - Note Progress Note: CHAUDHARY improved no fevers denies cough some constipation Vital Signs Period Temp Pulse Resp BP Sys/Rayo Pulse Ox Last 24 Hr 98.1 F-99.4 F 108-129 18-20 114-130/69-87 99-99 cor-rrr llungs clear abd soft,nt ext no edema CBC, BMP 07/10/16 06:15 07/10/16 06:15 Laboratory Tests 07/09/16 07/10/16 15:50 06:15 Monoscreen Negative HIV 1&2 Antibody Screen Negative HIV P24 Antigen Negative 8% neutrophils, ANC 208 a/p fever/neutropenia CVID ?viral continue cefepime, neutropenic precautions f/u cultures, viral serology
--- NOTE | 2016-07-10 14:55 | EKG ---
Test Reason : Blood Pressure : / mmHG Vent. Rate : 142 BPM Atrial Rate : 142 BPM P-R Int : 146 ms QRS Dur : 068 ms QT Int : 252 ms P-R-T Axes : 057 -15 045 degrees QTc Int : 387 ms SINUS TACHYCARDIA WHEN COMPARED WITH ECG OF 08-JUL-2015 20:24, VENT. RATE HAS INCREASED BY 59 BPM Confirmed by SINA ROGERS MD ([id number]) on 07/10/2016 2:55:11 PM Referred By: Confirmed By:SINA ROGERS MD
[2016-07-10] MEDS: SODIUM CHLORIDE 1,000 ML IV SCH ×2 (14:56→19:00)
--- NOTE | 2016-07-10 15:38 | CONS ---
DATE OF CONSULTATION: DATE OF DICTATION: 07/09/2016 HISTORY OF PRESENT ILLNESS: This is a 35-year-old female with common variable immunoglobulin deficiency as well as membranous nephropathy who I am asked to see after admission for fever. The patient is followed by an sql server developer and receives subcutaneous weekly doses of immunoglobulin replacement. She was diagnosed with CVIG many years ago after a history of recurrent respiratory tract infections. She was also diagnosed with membranous glomerulonephritis for which she has been on cyclosporine. She was otherwise in her usual state of health until approximately 6 days ago when she developed onset of fever and headache, which she graded as a 6/10. She also noted several episodes of vomiting, but this appears to have subsided. Since that time, she has had intermittent headaches and fever. She saw her primary medical doctor yesterday who did influenza screening, a chest x-ray and a rapid throat culture, all of which were negative. The patient denies any cough, coryza, shortness of breath, abdominal pain, diarrhea, rash, joint pains. She has no visual complaints and has no unusual outdoor exposures. She lives with family, noting that no one else at home has been ill. She does not work and has no HIV risk factors, noting that she has been tested several years ago and this was negative. She does not use drugs and has no unusual hobbies. She does have several pets at home including 4 dogs and 2 cats. PAST MEDICAL HISTORY: Includes asthma, migraine headaches, membranous glomerulonephropathy, CVIG. ALLERGIES: THEOPHYLLINE, METRONIDAZOLE and BACTRIM. SOCIAL HISTORY: Nonsmoker. No history of alcohol use. FAMILY HISTORY: Reviewed and noncontributory. REVIEW OF SYSTEMS: Respiratory: No cough or shortness of breath. Cardiac: No chest pain, palpitations, history of murmur. Gastrointestinal: No abdominal pain, nausea, vomiting, diarrhea, blood per rectum, hematocrit. Genitourinary: No dysuria, hematuria, urinary frequency. PHYSICAL EXAMINATION: General: She was an alert female in no acute distress. She was thin-appearing weighing 115 pounds. The temperature was 100.1. Pulse 114. Blood pressure 114/63, respirations 18. HEENT: Tympanic membranes within normal limits. Pharynx without erythema or exudate. Neck: Supple with mild anterior cervical bilateral lymphadenopathy. Lungs: Clear to percussion and auscultation. Heart: S1, S2. Regular rhythm without audible murmur. Tachycardic. Abdomen: Soft, nontender without hepatosplenomegaly. Skin: Without rash. Extremities: Without clubbing, cyanosis, or edema. LABORATORY DATA: White count was 2.3 with a hemoglobin of 12.6 and platelets of 180. Differential with 2% neutrophils, 47% lymphocytes, 47% monocytes, 2 eosinophils, 1 band and 2 reactive lymphocytes. The BUN was 5, creatinine 0.6, liver enzymes within normal limits. Urinalysis with 1 RBC and 4 WBCs. IMAGING: Chest x-ray done previously, no infiltrates seen. ASSESSMENT: A 35-year-old female with combined variable immunoglobulin deficiency getting subcutaneous immunoglobulin weekly, also with membranous nephropathy getting cyclosporin. Presents now with 6 days of febrile illness, nonspecific findings including headache 6/10 in the absence of any nuchal rigidity or other neurological symptoms or change in sensorium. She has low absolute granulocyte count and is leukopenic, more likely on the basis of increase in peripheral blood numbers of lymphocytes, which may go along with an acute viral illness. Though symptoms now going on for 6 days given her underlying severe immunologic status, she might be expected to behave differently than a person with a normal immune system, thus the duration of fever, not necessarily surprising. The case was discussed with her sql server developer and hematology. The possibility of viral illnesses including CMV, EBV considered. Given her history of exposure to cats, toxoplasmosis also considered. Blood cultures x2. Urine culture. Empiric therapy with cefepime 2 g IV q. 8 hours, serology for EBV, CMV, and toxoplasmosis and parvo ordered. Hematology consult pending. Peripheral smear to be reviewed by Dr. Patel. VIVI DEVLIN M.D. GRACIELA/[id number]
[2016-07-10] MEDS ORDERED: PRO SQ ONE (15:45)
[2016-07-10] MEDS ORDERED: IGA SQ ONE (15:45)
[2016-07-10] MEDS ORDERED: IMMUN GLOB SQ ONE (15:45)
[2016-07-11] MEDS: CEFEPIME 2 GM in DEXTROSE 5%-WATER - 100 ML IVPB SCH ×3 (01:28→17:53)
[2016-07-11] MEDS: oxyCODONE HCL 5 MG TABLET PO PRN ×2 (03:35→15:18)
[2016-07-11] MEDS: ONDANSETRON 4 MG/2 ML VIAL IVPB PRN ×2 (07:12→14:21)
[2016-07-11 07:50] LABS: MCH 27.5 pg (25.7-33.7); MCHC 34.8 g/dl (32.0-36.0); MEAN PLT VOLUME 8.2 fl (7.5-11.1); RDW 12.4 % (11.6-15.6); WHITE BLOOD COUNT 2.7 K/mm3 (4.0-10.0)
[2016-07-11 08:25] LABS: CREATININE 0.4 mg/dL (0.55-1.02); MAGNESIUM 1.9 mg/dL (1.8-2.4); PHOSPHOROUS 2.8 mg/dL (2.5-4.9)
[2016-07-11] MEDS ORDERED: PT OWN MED DRAWER 7, Y5N ONE ×3 (09:07→17:43)
[2016-07-11] MEDS: CYCLOSPORINE OU SCH ×2 (09:52→21:42)
[2016-07-11 09:56] LABS: PLATELET COUNT 165 K/MM3 (134-434); PLATELET ESTIMATE ADEQUATE (NORMAL)
[2016-07-11 10:08] LABS: HEMATOCRIT 32.7 % (34.0-46.6)
[2016-07-11] MEDS ORDERED: SUMATRIPTAN SUCCINATE 6 MG/0.5 ML VIAL SQ PRN (10:38)
[2016-07-11] MEDS ORDERED: PROMETHAZINE HCL 25 MG/1 ML VIAL IVPUSH PRN (10:38)
--- NOTE | 2016-07-11 10:41 | PN ---
Progress Note, Physician Chief Complaint: Ms Cobb says she is feeling better. Still with headache but helped with imitrex. Still with nausea but improved. No cp or sob. - Current Medication List Current Medications: Active Medications Acetaminophen (Tylenol -) 650 mg PO Q4H PRN PRN Reason: FEVER OR PAIN Last Admin: 07/10/16 22:06 Dose: 650 mg Diphenhydramine HCl (Benadryl Injection -) 12.5 mg IVPUSH Q4H PRN PRN Reason: FOR ITCHING Last Admin: 07/10/16 22:06 Dose: 12.5 mg Sodium Chloride (Normal Saline -) 1,000 mls @ 75 mls/hr IV ASDIR TING Last Admin: 07/10/16 19:00 Dose: 75 mls/hr Cefepime HCl 2 gm/ Dextrose 100 mls @ 200 mls/hr IVPB Q8H-IV TING Last Admin: 07/11/16 09:52 Dose: 200 mls/hr Cyclosporine [ Restasis] Ophth Drops 1 drop OU BID [facility] Last Admin: 07/11/16 09:52 Dose: 1 drop Immun Glob G(Igg)/Pro/Iga 0-50 [ Hizentra] 50 ml SQ FR TING Non-Formulary Medication (Mometasone/Formoterol [Dulera 100 Mcg/5 Mcg Inhaler]) 2 puff IH BID [facility] Last Admin: 07/10/16 10:36 Dose: Not Given Ondansetron HCl (Zofran Injection) 4 mg IVPB Q6H PRN PRN Reason: NAUSEA Last Admin: 07/11/16 07:12 Dose: 4 mg Oxycodone HCl (Roxicodone -) 5 mg PO Q6H PRN PRN Reason: PAIN Last Admin: 07/11/16 03:35 Dose: 5 mg - Objective Vital Signs: Vital Signs Temperature 98.9 F 07/10/16 21:00 Pulse Rate 105 H 07/10/16 21:00 Respiratory Rate 18 07/10/16 21:00 Blood Pressure 122/70 07/10/16 21:00 O2 Sat by Pulse Oximetry (%) 99 07/10/16 21:00 Constitutional: Yes: Well Nourished, No Distress, Calm Cardiovascular: Yes: Regular Rate and Rhythm. No: Gallop, Murmur, Rub Respiratory: Yes: Regular, CTA Bilaterally. No: Rales, Rhonchi, Wheezes Gastrointestinal: Yes: Normal Bowel Sounds, Soft. No: Distention, Tenderness Extremities: Yes: WNL Edema: No Labs: CBC, BMP 07/11/16 06:15 07/11/16 06:15 INR, PTT INR 1.12 (0.82-1.09) 07/10/16 06:15 Fibrinogen 403.0 mg/dL (238-498) 07/10/16 06:15 Problem List - Problems (1) Neutropenic fever Code(s): D70.9 - NEUTROPENIA, UNSPECIFIED R50.81 - FEVER PRESENTING WITH CONDITIONS CLASSIFIED ELSEWHERE (2) Common variable immunodeficiency Code(s): D83.9 - COMMON VARIABLE IMMUNODEFICIENCY, UNSPECIFIED (3) Intractable migraine Code(s): G43.919 - MIGRAINE, UNSP, INTRACTABLE, WITHOUT STATUS MIGRAINOSUS Qualifiers: Migraine type: abdominal Qualified Code(s): G43.D1 - Abdominal migraine , intractable (4) Asthma Code(s): J45.909 - UNSPECIFIED ASTHMA, UNCOMPLICATED Assessment/Plan (1) Neutropenic fever Assessment/Plan: -still with severe neutropenia -however fevers currently resolved -continue empiric antibiotics per ID -follow up serologies -hematology following Code(s): D70.9 - NEUTROPENIA, UNSPECIFIED R50.81 - FEVER PRESENTING WITH CONDITIONS CLASSIFIED ELSEWHERE (2) Common variable immunodeficiency Assessment/Plan: -consult hematology and rheumatology -continue hyzentra unless otherwise indicated by above consultants Code(s): D83.9 - COMMON VARIABLE IMMUNODEFICIENCY, UNSPECIFIED (3) Intractable migraine Assessment/Plan: -case d/w neurology -continue imitrex Code(s): G43.919 - MIGRAINE, UNSP, INTRACTABLE, WITHOUT STATUS MIGRAINOSUS Qualifiers: Migraine type: abdominal Qualified Code(s): G43.D1 - Abdominal migraine , intractable (4) Asthma Assessment/Plan: -continue dulera -not in exacerbation Code(s): J45.909 - UNSPECIFIED ASTHMA, UNCOMPLICATED
[2016-07-11] MEDS ORDERED: ONDANSETRON 4 MG/2 ML VIAL IVPB ONE (13:40)
[2016-07-11] MEDS: SODIUM CHLORIDE 1,000 ML IV SCH (14:22)
[2016-07-11] MEDS: MAG HYDROX/ALH/SMC/DPHA/LIDO 240 ML MOUTHWASH MM SCH ×3 (14:22→23:50)
[2016-07-11] MEDS: ACETAMINOPHEN 325 MG TABLET (FP) PO PRN (15:19)
--- NOTE | 2016-07-11 15:31 | PN ---
Progress Note (short form) - Note Progress Note: CHAUDHARY unchanged no fevers denies cough Vital Signs Period Temp Pulse Resp BP Sys/Rayo Pulse Ox Last 24 Hr 98.6 F-98.9 F 100-105 18-18 115-153/58-70 99-99 no thrush or pharyngitis cor-rrr llungs clear abd soft,nt ext no edema no rash CBC, BMP 07/11/16 06:15 07/11/16 06:15 Microbiology 07/09/16 10:30 Blood - Peripheral Venous Blood Culture - Preliminary NO GROWTH OBTAINED AFTER 48 HOURS, INCUBATION TO CONTINUE FOR 3 DAYS. 07/09/16 10:30 Blood - Peripheral Venous Blood Culture - Preliminary NO GROWTH OBTAINED AFTER 48 HOURS, INCUBATION TO CONTINUE FOR 3 DAYS. 07/09/16 12:23 Urine - Urine Clean Catch Urine Culture - Final Contaminated: Please Repeat Current Medications Acetaminophen (Tylenol -) 650 mg PO Q4H PRN PRN Reason: FEVER OR PAIN Last Admin: 07/11/16 15:19 Dose: 650 mg Diphenhydramine HCl (Benadryl Injection -) 12.5 mg IVPUSH Q4H PRN PRN Reason: FOR ITCHING Last Admin: 07/10/16 22:06 Dose: 12.5 mg Sodium Chloride (Normal Saline -) 1,000 mls @ 75 mls/hr IV ASDIR TING Last Admin: 07/11/16 14:22 Dose: Not Given Cefepime HCl 2 gm/ Dextrose 100 mls @ 200 mls/hr IVPB Q8H-IV TING Last Admin: 07/11/16 09:52 Dose: 200 mls/hr Lidocaine/Aluminum/Magnesium/Simeth (Magic Mouthwash *Sjr Formula* -) 5 ml MM Q6HPO TING Last Admin: 07/11/16 14:22 Dose: 5 ml Cyclosporine [ Restasis] Ophth Drops 1 drop OU BID TING Last Admin: 07/11/16 09:52 Dose: 1 drop Immun Glob G(Igg)/Pro/Iga 0-50 [ Hizentra] 50 ml SQ FR TING Non-Formulary Medication (Mometasone/Formoterol [Dulera 100 Mcg/5 Mcg Inhaler]) 2 puff IH BID [facility] Last Admin: 07/10/16 10:36 Dose: Not Given Ondansetron HCl (Zofran Injection) 8 mg IVPB Q8H PRN PRN Reason: NAUSEA Last Admin: 07/11/16 14:21 Dose: 8 mg Oxycodone HCl (Roxicodone -) 5 mg PO Q6H PRN PRN Reason: PAIN Last Admin: 07/11/16 15:18 Dose: 5 mg Promethazine HCl (Phenergan Injection -) 12.5 mg IVPUSH Q4H PRN PRN Reason: NAUSEA AND/OR VOMITING Sumatriptan Succinate (Imitrex Injection -) 6 mg SQ BID PRN PRN Reason: HEADACHE Last Admin: 07/11/16 12:50 Dose: 6 mg a/p fever/neutropenia-afebrile now but no marrow recovery noted, viral serologies pending she was on cefnidir for 10 days and then po clarithromycin for 20 days- finished sometime in May not sure she had a cbc after this CVID ?viral process continue cefepime, neutropenic precautions f/u cultures, viral serology hematology is considering bone marrow biopsy
--- NOTE | 2016-07-11 15:32 | CONSULT ---
Consult - text type - Consultation Consultation Note: NEUROLOGY CONSULTATION is greatly appreciated: This 35 yo RH woman with h/o Common variable immunodeficiency is maintained on SQ IVIg (10 gm/week). Last July she developed renal failure due to Membranous Glomerulonephritis, now improved. 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 Now admitted with leukocytosis , fevers and 1 week of headaches. Chronic migraine CHAUDHARY's since age 14. Would occur 3-4/ per month, often with menses (catamenial). These are throbbing hemicranial CHAUDHARY's with nausea, vomiting , photophobia. + Maternal FH of migraines. Took amitriptyline is the past with good effect (but D/C'ed due to dry eyes). Topiramate was not effective. Tolerated propranolol as adolescent (? before asthma?). Pt and sister relate frequent headaches with fevers in the past. Over the last week has had waxing and waning hemicranial headaches (switching from side-to- side) with nausea and vomiting. Imitrex gives transient relief (up to 6 hours) but then the CHAUDHARY's recur. ROS sig for chronic nocturnal aching pains in legs since teenage years. Markedly worsened by reglan in the past. MAMTA: Neck supple. Negative Kernig's. No evidence of external head injury. NEURO: Awake, alert. MS/speech : Normal CN II-XII: Normal Motor: No drift or tremor. Normal strength, tone, bulk and reflexes. toes downgoing. Coord: No FTN dystaxia Sensory: Normal Gait: Normal IMP: Normal neurological exam. Status migrainosis associated with fevers. Restless Legs Syndrome (RLS). SUGGEST: Start amitriptyline 25 mg qHS Give naprosyn 500 mg PO BID after breakfast and dinner x 3 days. Continue sumatriptan 5 mg sq q 8 hrs PRN migraine, Oxycodone (5 mg) PRN. MRI if headaches persist. Avoid reglan, antihistamines- will worsen RLS. Thank you very much, Miguel Lemons MD
--- NOTE | 2016-07-11 15:53 | PN ---
Progress Note (short form) - Note Progress Note: Patient seen in follow up. No events overnight. Complaining of ongoing headache/migraine - partially improved following Imitrex. Ongoing nausea - not relieved with Zofran 4mgs. Received her SQIG yesterday without complication. Meds reviewed. Current Medications Generic Name Dose Route Start Last Admin Trade Name Freq PRN Reason Stop Dose Admin Acetaminophen 650 mg 07/09/16 13:30 07/10/16 02:27 Tylenol - PO 650 mg Q4H PRN Administration FEVER OR PAIN Diphenhydramine HCl 12.5 mg 07/10/16 11:16 Benadryl Injection - IVPUSH Q4H PRN FOR ITCHING Sodium Chloride 1,000 mls @ 75 mls/hr 07/09/16 13:30 07/09/16 20:57 Normal Saline - IV 75 mls/hr ASDIR TING Administration Cefepime HCl 2 gm/ Dextrose 100 mls @ 200 mls/hr 07/09/16 20:30 07/10/16 12:55 IVPB 200 mls/hr Q8H-IV TING Administration Cyclosporine [ 1 drop 07/09/16 22:00 07/10/16 10:35 Restasis] Ophth OU 1 drop Drops BID TING Administration Immun Glob G(Igg)/ 50 ml 07/16/16 10:00 Pro/Iga 0-50 [ SQ Hizentra] FR TING Non-Formulary Medication 2 puff 07/09/16 22:00 07/10/16 10:36 Mometasone/Formoterol [Dulera 100 Mcg/5 Mcg Inhaler] IH Not Given BID TING Ondansetron HCl 4 mg 07/09/16 13:30 07/10/16 10:33 Zofran Injection IVPB 4 mg Q6H PRN Administration NAUSEA Oxycodone HCl 5 mg 07/09/16 13:30 07/10/16 12:53 Roxicodone - PO 5 mg Q6H PRN Administration PAIN On exam: Well hydrated. Chest: clear Abdomen: Soft, not distended. CVS: S1, S2, no gallop or murmur. Skin: No rash Neuro: Alert, oriented. Non-focal. Extremities: No swelling. CBC, BMP 07/11/16 06:15 07/11/16 06:15 P. smear reviewed yesterday - no neutrophils seen. 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 Cultures negative. Afebrile during admission (?fever spike 2 days ago). Empiric Abics (cefepime). No obvious etiology for neutropenia - will continue to observe for now. Possibly attributable to prolonged course of Abics she received in May. ID workup (?viral etiology) in process. May consider trial of GCSF if no improvement noted, but would require bone marrow biopsy prior. patient is agreeable - if no recovery noted tomorrow then will proceed with biopsy. Neurology providing recommendations for ongoing headache - treated as for migraine.
[2016-07-11] MEDS: NAPROXEN 500 MG TABLET (FP) PO SCH (19:02)
[2016-07-11] MEDS: AMITRIPTYLINE HCL 25 MG TABLET (FP) PO SCH (21:42)
[2016-07-12] MEDS: CEFEPIME 2 GM in DEXTROSE 5%-WATER - 100 ML IVPB SCH ×2 (02:02→11:41)
[2016-07-12] MEDS: oxyCODONE HCL 5 MG TABLET PO PRN (05:42)
[2016-07-12] MEDS: ACETAMINOPHEN 325 MG TABLET (FP) PO PRN (05:42)
[2016-07-12] MEDS: MAG HYDROX/ALH/SMC/DPHA/LIDO 240 ML MOUTHWASH MM SCH ×3 (06:30→18:08)
[2016-07-12 08:40] LABS: MCHC 34.5 g/dl (32.0-36.0); MEAN CELL VOLUME 78.1 fl (80-96); MEAN PLT VOLUME 7.6 fl (7.5-11.1); PLATELET COUNT 172 K/MM3 (134-434); RDW 12.4 % (11.6-15.6); WHITE BLOOD COUNT 2.2 K/mm3 (4.0-10.0)
[2016-07-12 09:03] LABS: CREATININE 0.4 mg/dL (0.55-1.02); MAGNESIUM 2.1 mg/dL (1.8-2.4)
[2016-07-12] MEDS ORDERED: PT OWN MED DRAWER 7, Y5N ONE ×2 (09:56→11:14)
[2016-07-12] MEDS: NAPROXEN 500 MG TABLET (FP) PO SCH ×2 (10:01→18:08)
--- NOTE | 2016-07-12 11:19 | PN ---
Progress Note, Physician Chief Complaint: ID NO change in overall condition NO fever notable Only temp 100.1 on admission Cefepime day 4 therapy - Current Medication List Current Medications: Active Medications Acetaminophen (Tylenol -) 650 mg PO Q4H PRN PRN Reason: FEVER OR PAIN Last Admin: 07/12/16 05:42 Dose: 650 mg Amitriptyline HCl (Elavil -) 25 mg PO HS TING Last Admin: 07/11/16 21:42 Dose: 25 mg Diphenhydramine HCl (Benadryl Injection -) 12.5 mg IVPUSH Q4H PRN PRN Reason: FOR ITCHING Last Admin: 07/10/16 22:06 Dose: 12.5 mg Sodium Chloride (Normal Saline -) 1,000 mls @ 75 mls/hr IV ASDIR TING Last Admin: 07/11/16 14:22 Dose: Not Given Cefepime HCl 2 gm/ Dextrose 100 mls @ 200 mls/hr IVPB Q8H-IV TING Last Admin: 07/12/16 02:02 Dose: 200 mls/hr Lidocaine/Aluminum/Magnesium/Simeth (Magic Mouthwash *Sjr Formula* -) 5 ml MM Q6HPO TING Last Admin: 07/12/16 06:30 Dose: Not Given Naproxen (Naprosyn -) 500 mg PO BIDPC TING Last Admin: 07/12/16 10:01 Dose: 500 mg Cyclosporine [ Restasis] Ophth Drops 1 drop OU BID TING Last Admin: 07/11/16 21:42 Dose: 1 drop Immun Glob G(Igg)/Pro/Iga 0-50 [ Hizentra] 50 ml SQ FR TING Non-Formulary Medication (Mometasone/Formoterol [Dulera 100 Mcg/5 Mcg Inhaler]) 2 puff IH BID TING Last Admin: 07/10/16 10:36 Dose: Not Given Ondansetron HCl (Zofran Injection) 8 mg IVPB Q8H PRN PRN Reason: NAUSEA Last Admin: 07/11/16 14:21 Dose: 8 mg Oxycodone HCl (Roxicodone -) 5 mg PO Q6H PRN PRN Reason: PAIN Last Admin: 07/12/16 05:42 Dose: 5 mg Sumatriptan Succinate (Imitrex Injection -) 6 mg SQ BID PRN PRN Reason: HEADACHE Last Admin: 07/11/16 12:50 Dose: 6 mg - Objective Vital Signs: Vital Signs Temperature 98.2 F 07/12/16 06:00 Pulse Rate 93 H 07/12/16 06:00 Respiratory Rate 18 07/12/16 06:00 Blood Pressure 107/55 07/12/16 06:00 O2 Sat by Pulse Oximetry (%) 99 07/11/16 21:00 Constitutional: Yes: No Distress, Thin HENT: Yes: Other (2 dry lesins lower lip and sore left tongue small) Neck: Yes: WNL, Supple Cardiovascular: Yes: Regular Rate and Rhythm, S1, S2. No: Murmur Respiratory: Yes: WNL, Regular, CTA Bilaterally. No: Rhonchi, SOB, SOB on Exertion Gastrointestinal: Yes: WNL, Normal Bowel Sounds, Soft. No: Hepatomegaly, Splenomegaly, Tenderness, Tenderness, Epigastrium Edema: No Integumentary: No: Rash Labs: CBC, BMP 07/12/16 06:15 07/12/16 06:15 INR, PTT INR 1.12 (0.82-1.09) 07/10/16 06:15 Fibrinogen 403.0 mg/dL (238-498) 07/10/16 06:15 Problem List - Problems (1) FUO (fever of unknown origin) Code(s): R50.9 - FEVER, UNSPECIFIED (2) Viral illness Code(s): B34.9 - VIRAL INFECTION, UNSPECIFIED (3) Common variable immunodeficiency Code(s): D83.9 - COMMON VARIABLE IMMUNODEFICIENCY, UNSPECIFIED Assessment/Plan Microbiology 07/09/16 12:23 Urine - Urine Clean Catch Urine Culture - Final Contaminated: Please Repeat 07/09/16 10:30 Blood - Peripheral Venous Blood Culture - Preliminary NO GROWTH OBTAINED AFTER 72 HOURS, INCUBATION TO CONTINUE FOR 2 DAYS. 07/09/16 10:30 Blood - Peripheral Venous Blood Culture - Preliminary NO GROWTH OBTAINED AFTER 72 HOURS, INCUBATION TO CONTINUE FOR 2 DAYS. Laboratory Tests 07/10/16 07/10/16 07/10/16 06:15 06:15 06:15 WBC Hgb Hct Plt Count Neutrophils % Lymphocytes % Basophils % ESR INR BUN Creatinine EBV IgM Ab Pending EBV Early Antigen Pending EBV Nuclear Antigen Pending Monoscreen Negative Parvovirus B19 IgG Ab Parvovirus B19 IgM Ab Toxoplasma IgG Ab Pending Toxoplasma Comment Pending 07/10/16 07/10/16 07/10/16 06:15 06:15 06:15 WBC Hgb Hct Plt Count Neutrophils % Lymphocytes % Basophils % ESR 50 H INR 1.12 BUN Creatinine EBV IgM Ab EBV Early Antigen EBV Nuclear Antigen Monoscreen Parvovirus B19 IgG Ab Pending Parvovirus B19 IgM Ab Pending Toxoplasma IgG Ab Toxoplasma Comment 07/11/16 07/12/16 07/12/16 06:15 06:15 06:15 WBC 2.2 L Hgb 10.6 L Hct 30.7 L Plt Count 172 Neutrophils % 1.0 L Lymphocytes % 42.0 H Basophils % 1.0 D ESR INR BUN 4 L Creatinine 0.4 L EBV IgM Ab EBV Early Antigen EBV Nuclear Antigen Monoscreen Parvovirus B19 IgG Ab Parvovirus B19 IgM Ab Toxoplasma IgG Ab Toxoplasma Comment Profound Neutropenia with no fever or localizing complaints Does have tongue sore and 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 Will stop Cefepime give prophylactic ciproflox 500mg bid Add Valtrex Find CMV PCR sent ?? Await serology and advise bone marrow as potentially may need immunotherapy treatment Jd DE LOS SANTOS
[2016-07-12] MEDS: CYCLOSPORINE OU SCH ×2 (11:41→22:39)
--- NOTE | 2016-07-12 15:54 | PN ---
Progress Note, Physician Chief Complaint: Ms Cobb says she is feeling better. Headache is much improved, nausea resolved and she is eating. No cp or sob. - Current Medication List Current Medications: Active Medications Acetaminophen (Tylenol -) 650 mg PO Q4H PRN PRN Reason: FEVER OR PAIN Last Admin: 07/12/16 05:42 Dose: 650 mg Amitriptyline HCl (Elavil -) 25 mg PO HS [facility] Last Admin: 07/11/16 21:42 Dose: 25 mg Ciprofloxacin (Cipro (Restricted To Id)) 500 mg PO BID TING Diphenhydramine HCl (Benadryl Injection -) 12.5 mg IVPUSH Q4H PRN PRN Reason: FOR ITCHING Last Admin: 07/10/16 22:06 Dose: 12.5 mg Sodium Chloride (Normal Saline -) 1,000 mls @ 75 mls/hr IV ASDIR [facility] Last Admin: 07/11/16 14:22 Dose: Not Given Lidocaine/Aluminum/Magnesium/Simeth (Magic Mouthwash *Sjr Formula* -) 5 ml MM Q6HPO [facility] Last Admin: 07/12/16 11:41 Dose: 5 ml Naproxen (Naprosyn -) 500 mg PO BIDPC [facility] Last Admin: 07/12/16 10:01 Dose: 500 mg Cyclosporine [ Restasis] Ophth Drops 1 drop OU BID TING Last Admin: 07/12/16 11:41 Dose: 1 drop Immun Glob G(Igg)/Pro/Iga 0-50 [ Hizentra] 50 ml SQ FR [facility] Non-Formulary Medication (Mometasone/Formoterol [Dulera 100 Mcg/5 Mcg Inhaler]) 2 puff IH BID [facility] Last Admin: 07/10/16 10:36 Dose: Not Given Ondansetron HCl (Zofran Injection) 8 mg IVPB Q8H PRN PRN Reason: NAUSEA Last Admin: 07/11/16 14:21 Dose: 8 mg Oxycodone HCl (Roxicodone -) 5 mg PO Q6H PRN PRN Reason: PAIN Last Admin: 07/12/16 05:42 Dose: 5 mg Sumatriptan Succinate (Imitrex Injection -) 6 mg SQ BID PRN PRN Reason: HEADACHE Last Admin: 07/11/16 12:50 Dose: 6 mg Valacyclovir HCl (Valtrex -) 500 mg PO BID TING - Objective Vital Signs: Vital Signs Temperature 98.4 F 07/12/16 14:23 Pulse Rate 96 H 07/12/16 14:23 Respiratory Rate 16 07/12/16 14:23 Blood Pressure 108/62 07/12/16 14:23 O2 Sat by Pulse Oximetry (%) 99 07/11/16 21:00 Constitutional: Yes: Well Nourished, No Distress, Calm Cardiovascular: Yes: Regular Rate and Rhythm. No: Gallop, Murmur, Rub Respiratory: Yes: Regular, CTA Bilaterally. No: Rales, Rhonchi, Wheezes Gastrointestinal: Yes: Normal Bowel Sounds, Soft. No: Distention, Tenderness Extremities: Yes: WNL Edema: No Labs: CBC, BMP 07/12/16 06:15 07/12/16 06:15 INR, PTT INR 1.12 (0.82-1.09) 07/10/16 06:15 Fibrinogen 403.0 mg/dL (238-498) 07/10/16 06:15 Problem List - Problems (1) Neutropenic fever Code(s): D70.9 - NEUTROPENIA, UNSPECIFIED R50.81 - FEVER PRESENTING WITH CONDITIONS CLASSIFIED ELSEWHERE (2) Common variable immunodeficiency Code(s): D83.9 - COMMON VARIABLE IMMUNODEFICIENCY, UNSPECIFIED (3) Intractable migraine Code(s): G43.919 - MIGRAINE, UNSP, INTRACTABLE, WITHOUT STATUS MIGRAINOSUS Qualifiers: Migraine type: abdominal Qualified Code(s): G43.D1 - Abdominal migraine , intractable (4) Asthma Code(s): J45.909 - UNSPECIFIED ASTHMA, UNCOMPLICATED Assessment/Plan (1) Neutropenic fever Assessment/Plan: -still with severe neutropenia -however fevers currently resolved -continue empiric antibiotics per ID -follow up serologies -hematology following, planning for bone marrow biopsy as neutrophils have not recovered -? autoimmune Code(s): D70.9 - NEUTROPENIA, UNSPECIFIED R50.81 - FEVER PRESENTING WITH CONDITIONS CLASSIFIED ELSEWHERE (2) Common variable immunodeficiency Assessment/Plan: -consult hematology and rheumatology -continue hyzentra unless otherwise indicated by above consultants Code(s): D83.9 - COMMON VARIABLE IMMUNODEFICIENCY, UNSPECIFIED (3) Intractable migraine Assessment/Plan: -case d/w neurology -continue imitrex Code(s): G43.919 - MIGRAINE, UNSP, INTRACTABLE, WITHOUT STATUS MIGRAINOSUS Qualifiers: Migraine type: abdominal Qualified Code(s): G43.D1 - Abdominal migraine , intractable (4) Asthma Assessment/Plan: -continue dulera -not in exacerbation Code(s): J45.909 - UNSPECIFIED ASTHMA, UNCOMPLICATED
[2016-07-12] MEDS: SODIUM CHLORIDE 1,000 ML IV SCH (17:57)
[2016-07-12 18:08] LABS: PLATELET ESTIMATE ADEQUATE (NORMAL)
--- NOTE | 2016-07-12 20:48 | PN ---
Progress Note (short form) - Note Progress Note: PAtient seen and examined feeels much improved headaches improved AFVSS Cor: RSR, No murmurs, No gallops Lungs: Clear to P&A Abd: Soft, Normal bowel sounds, No organomegaly Ext:No significant edema Skin: No rashes, Integument intact Abnormal Lab Results 07/10/16 07/12/16 07/12/16 06:15 06:15 06:15 WBC 2.2 L Hgb 10.6 L Hct 30.7 L MCV 78.1 L Neutrophils % 5.0 L D Lymphocytes % 45.0 H Monocytes % 33.0 H Eosinophils % 12.0 H Anion Gap 7 L BUN 4 L Creatinine 0.4 L Calcium 8.0 L EBV Nuclear Antigen 243.0 H 07/13/16 06:30 WBC 2.2 L Hgb 10.4 L Hct 30.2 L MCV 78.0 L Neutrophils % Lymphocytes % Monocytes % Eosinophils % Anion Gap BUN Creatinine Calcium EBV Nuclear Antigen Current Medications Acetaminophen (Tylenol -) 650 mg PO Q4H PRN PRN Reason: FEVER OR PAIN Last Admin: 07/12/16 05:42 Dose: 650 mg Amitriptyline HCl (Elavil -) 25 mg PO HS [facility] Last Admin: 07/12/16 22:39 Dose: 25 mg Ciprofloxacin (Cipro (Restricted To Id)) 500 mg PO BID [facility] Last Admin: 07/12/16 22:37 Dose: 500 mg Diphenhydramine HCl (Benadryl Injection -) 12.5 mg IVPUSH Q4H PRN PRN Reason: FOR ITCHING Last Admin: 07/10/16 22:06 Dose: 12.5 mg Sodium Chloride (Normal Saline -) 1,000 mls @ 75 mls/hr IV ASDIR [facility] Last Admin: 07/12/16 17:57 Dose: Not Given Lidocaine/Aluminum/Magnesium/Simeth (Magic Mouthwash *Sjr Formula* -) 5 ml MM Q6HPO [facility] Last Admin: 07/13/16 06:38 Dose: 5 ml Naproxen (Naprosyn -) 500 mg PO BIDPC [facility] Last Admin: 07/12/16 18:08 Dose: 500 mg Cyclosporine [ Restasis] Ophth Drops 1 drop OU BID [facility] Last Admin: 07/12/16 22:39 Dose: 1 drop Immun Glob G(Igg)/Pro/Iga 0-50 [ Hizentra] 50 ml SQ FR TING Non-Formulary Medication (Mometasone/Formoterol [Dulera 100 Mcg/5 Mcg Inhaler]) 2 puff IH BID TING Last Admin: 07/10/16 10:36 Dose: Not Given Ondansetron HCl (Zofran Injection) 8 mg IVPB Q8H PRN PRN Reason: NAUSEA Last Admin: 07/11/16 14:21 Dose: 8 mg Oxycodone HCl (Roxicodone -) 5 mg PO Q6H PRN PRN Reason: PAIN Last Admin: 07/12/16 05:42 Dose: 5 mg Sumatriptan Succinate (Imitrex Injection -) 6 mg SQ BID PRN PRN Reason: HEADACHE Last Admin: 07/11/16 12:50 Dose: 6 mg Valacyclovir HCl (Valtrex -) 500 mg PO BID TING Last Admin: 07/12/16 22:37 Dose: 500 mg A/P 35 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 Hendricks
[2016-07-12] MEDS: CIPROFLOXACIN 250 MG TABLET (RESTRICTED TO ID) PO SCH (22:37)
[2016-07-12] MEDS: valACYclovir HCL 500 MG TABLET (FP) PO SCH (22:37)
[2016-07-12] MEDS: AMITRIPTYLINE HCL 25 MG TABLET (FP) PO SCH (22:39)
[2016-07-13] MEDS: MAG HYDROX/ALH/SMC/DPHA/LIDO 240 ML MOUTHWASH MM SCH ×5 (06:38→18:18)
[2016-07-13 08:00] LABS: MCH 26.9 pg (25.7-33.7); MCHC 34.5 g/dl (32.0-36.0); MEAN PLT VOLUME 7.7 fl (7.5-11.1); PLATELET COUNT 181 K/MM3 (134-434); RDW 12.5 % (11.6-15.6); WHITE BLOOD COUNT 2.2 K/mm3 (4.0-10.0)
[2016-07-13 08:30] LABS: ALBUMIN 2.5 g/dl (3.4-5.0); ANION GAP 8 (8-16); CO2 31 mmol/L (21-32); GLUCOSE,RANDOM 89 mg/dL (74-106)
[2016-07-13 08:35] LABS: ALK PHOS 70 U/L (45-117); BILIRUBIN,TOTAL 0.2 mg/dL (0.2-1.0); CREATININE 0.4 mg/dL (0.55-1.02); SGOT/AST 14 U/L (15-37); SGPT/ALT 10 U/L (12-78)
--- NOTE | 2016-07-13 09:10 | PN ---
Progress Note (short form) - Note Progress Note: Patient seen and examined Chart reviewed at length. Currently lying supine in bed, a wake alert, appropriate. Headache and oral irritation improved. No cough , rigors, dysuria , new rash or localizing symptomatology noted. For CT today. Labs and travel service consultant notes reviewed. Selected Entries 07/12/16 07/13/16 21:00 06:00 Temperature 98.3 F Pulse Rate 102 H Respiratory 18 Rate Blood Pressure 120/70 O2 Sat by Pulse 98 Oximetry (%) Oxygen Delivery Room Air Method Laboratory Tests 07/13/16 06:30 WBC 2.2 L Hgb 10.4 L Hct 30.2 L Today's CMP pending Oropharynx Localized focal areas of mild erythema on left side of tongue and roof of mouth No exudates Lip ulcerated area appears to be healing Chest Clear Cor RRR Abd Soft non-tender No hepatosplenomegaly BS positive No mass Ext No edema No phlebitis Neuro No new focal deficit Assessment and Plan Neutropenia Etiology unclear Auto-immune phenomenon vs viral syndrome Continue empiric antibiotic therapies Common Variable immunodeficiency/hypogammaglobulinemia Decreased IgA noted on SPEP/IEP Oral mucosal lesions of note in this regard Headache syndrome H/O migraines Stable Membranous glomerulonephropathy Stable Likely on the basis of immunologic factors 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
[2016-07-13] MEDS ORDERED: PT OWN MED DRAWER 7, Y5N ONE ×3 (09:55→18:14)
[2016-07-13] MEDS: CYCLOSPORINE OU SCH ×2 (09:58→22:58)
[2016-07-13] MEDS: NAPROXEN 500 MG TABLET (FP) PO SCH ×2 (09:58→18:18)
[2016-07-13] MEDS: CIPROFLOXACIN 250 MG TABLET (RESTRICTED TO ID) PO SCH ×2 (09:58→22:58)
[2016-07-13] MEDS: valACYclovir HCL 500 MG TABLET (FP) PO SCH ×2 (09:58→22:58)
[2016-07-13] MEDS: ONDANSETRON 4 MG/2 ML VIAL IVPB PRN (11:30)
[2016-07-13 12:21] LABS: PLATELET ESTIMATE ADEQUATE (NORMAL)
[2016-07-13] MEDS: SODIUM CHLORIDE 1,000 ML IV SCH (22:56)
[2016-07-13] MEDS: AMITRIPTYLINE HCL 25 MG TABLET (FP) PO SCH (22:58)
[2016-07-14] MEDS: MAG HYDROX/ALH/SMC/DPHA/LIDO 240 ML MOUTHWASH MM SCH ×2 (06:09)
[2016-07-14 08:07] LABS: TOXOPLASMA IG-M QUANTITATIVE < 3.0 AU/mL (0.0-7.9); TOXOPLASMA IGG QUANTITATIVE < 3.0 IU/mL (0.0-7.1)
[2016-07-14 08:12] LABS: MCH 27.1 pg (25.7-33.7); MCHC 34.7 g/dl (32.0-36.0); MEAN CELL VOLUME 78.1 fl (80-96); MEAN PLT VOLUME 7.4 fl (7.5-11.1); PLATELET COUNT 196 K/MM3 (134-434); RDW 12.3 % (11.6-15.6)
[2016-07-14 08:34] LABS: ALBUMIN 2.5 g/dl (3.4-5.0); ANION GAP 4 (8-16); CALCIUM 7.8 mg/dL (8.5-10.1); CO2 31 mmol/L (21-32); GLUCOSE,RANDOM 88 mg/dL (74-106); MAGNESIUM 2.1 mg/dL (1.8-2.4); SGOT/AST 13 U/L (15-37); SGPT/ALT 13 U/L (12-78)
[2016-07-14 08:39] LABS: ALK PHOS 78 U/L (45-117); BILIRUBIN,TOTAL 0.4 mg/dL (0.2-1.0); CREATININE 0.3 mg/dL (0.55-1.02); FERRITIN 79.171 ng/ml (6.9-282.5); TOT PROT 4.9 g/dl (6.4-8.2)
[2016-07-14 09:48] LABS: PLATELET ESTIMATE ADEQUATE (NORMAL)
--- NOTE | 2016-07-14 10:12 | PN ---
Progress Note, Physician Chief Complaint: ID Asymptomatic NO fever oral CIPROFLOXACIN Valtrex - Current Medication List Current Medications: Active Medications Acetaminophen (Tylenol -) 650 mg PO Q4H PRN PRN Reason: FEVER OR PAIN Last Admin: 07/12/16 05:42 Dose: 650 mg Amitriptyline HCl (Elavil -) 25 mg PO HS [facility] Last Admin: 07/13/16 22:58 Dose: 25 mg Ciprofloxacin (Cipro (Restricted To Id)) 500 mg PO BID [facility] Last Admin: 07/13/16 22:58 Dose: 500 mg Diphenhydramine HCl (Benadryl Injection -) 12.5 mg IVPUSH Q4H PRN PRN Reason: FOR ITCHING Last Admin: 07/10/16 22:06 Dose: 12.5 mg Sodium Chloride (Normal Saline -) 1,000 mls @ 75 mls/hr IV ASDIR [facility] Last Admin: 07/13/16 22:56 Dose: 75 mls/hr Lidocaine/Aluminum/Magnesium/Simeth (Magic Mouthwash *Sjr Formula* -) 5 ml MM Q6HPO [facility] Last Admin: 07/14/16 06:09 Dose: 5 ml Naproxen (Naprosyn -) 500 mg PO BIDPC [facility] Last Admin: 07/13/16 18:18 Dose: 500 mg Cyclosporine [ Restasis] Ophth Drops 1 drop OU BID [facility] Last Admin: 07/13/16 22:58 Dose: 1 drop Immun Glob G(Igg)/Pro/Iga 0-50 [ Hizentra] 50 ml SQ FR [facility] Non-Formulary Medication (Mometasone/Formoterol [Dulera 100 Mcg/5 Mcg Inhaler]) 2 puff IH BID [facility] Last Admin: 07/10/16 10:36 Dose: Not Given Ondansetron HCl (Zofran Injection) 8 mg IVPB Q8H PRN PRN Reason: NAUSEA Last Admin: 07/13/16 11:30 Dose: 8 mg Oxycodone HCl (Roxicodone -) 5 mg PO Q6H PRN PRN Reason: PAIN Last Admin: 07/12/16 05:42 Dose: 5 mg Sumatriptan Succinate (Imitrex Injection -) 6 mg SQ BID PRN PRN Reason: HEADACHE Last Admin: 07/11/16 12:50 Dose: 6 mg Valacyclovir HCl (Valtrex -) 500 mg PO BID TING Last Admin: 07/13/16 22:58 Dose: 500 mg - Objective Vital Signs: Vital Signs Temperature 98.2 F 07/14/16 06:00 Pulse Rate 88 07/14/16 06:00 Respiratory Rate 18 07/14/16 06:00 Blood Pressure 120/67 07/14/16 06:00 O2 Sat by Pulse Oximetry (%) 98 07/13/16 21:00 Constitutional: Yes: Well Nourished, No Distress HENT: Yes: WNL, Atraumatic Neck: Yes: WNL, Supple Cardiovascular: Yes: S1, S2 Respiratory: Yes: WNL, Regular, CTA Bilaterally Gastrointestinal: Yes: Soft. 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 with discharge planning as she appears very stable Jd DE LOS SANTOS
--- NOTE | 2016-07-14 10:49 | DS ---
Physical Examination Vital Signs: Vital Signs Temperature 98.2 F 07/14/16 06:00 Pulse Rate 88 07/14/16 06:00 Respiratory Rate 18 07/14/16 06:00 Blood Pressure 120/67 07/14/16 06:00 O2 Sat by Pulse Oximetry (%) 98 07/13/16 21:00 Constitutional: Yes: Well Nourished, No Distress, Calm Cardiovascular: Yes: Regular Rate and Rhythm. No: Gallop, Murmur, Rub Respiratory: Yes: Regular, CTA Bilaterally. No: Rales, Rhonchi, Wheezes Gastrointestinal: Yes: Normal Bowel Sounds, Soft. No: Distention, Tenderness Extremities: Yes: WNL Edema: No Labs: CBC, BMP 07/14/16 06:10 07/14/16 06:10 Discharge Summary Reason For Visit: FEBRILE NEUTROPENIA Current Active Problems Asthma (Acute) Common variable immunodeficiency (Acute) FUO (fever of unknown origin) (Acute) Neutropenic fever (Acute) Viral illness (Acute) Hospital Course: (1) Neutropenic fever Code(s): D70.9 - NEUTROPENIA, UNSPECIFIED R50.81 - FEVER PRESENTING WITH CONDITIONS CLASSIFIED ELSEWHERE (2) Common variable immunodeficiency Code(s): D83.9 - COMMON VARIABLE IMMUNODEFICIENCY, UNSPECIFIED (3) Intractable migraine Code(s): G43.919 - MIGRAINE, UNSP, INTRACTABLE, WITHOUT STATUS MIGRAINOSUS Qualifiers: Migraine type: abdominal Qualified Code(s): G43.D1 - Abdominal migraine , intractable (4) Asthma Code(s): J45.909 - UNSPECIFIED ASTHMA, UNCOMPLICATED Ms Cobb is a 36 year old female who came in with neutropenic fever. She was admitted to the hospital and seen by both ID and hematology. She was started on empiric antibiotics. Multiple cultures were sent and negative. She improved significantly in the hospital and returned to baseline. She was cleared by both hematology and ID for discharge. She is safe for discharge home. 37 minutes spent in preparation of this discharge Condition: Good - Instructions Diet, Activity, Other Instructions: avoid raw fruits and vegetables. eat only well done meats. resume previous activity. wear a mask in public. Referrals: Carolin Harrell MD [Primary Care Provider] - Disposition: HOME - Home Medications Comprehensive Discharge Medication List: Ambulatory Orders Immun Glob G(IgG)/Pro/Iga 0-50 [Hizentra 2 Gram/10 ml Vial] 50 ml SQ WEEKLY #0 ml 04/04/12 Cyclosporine [Restasis] 1 drop OU BID 07/04/15 Mometasone/Formoterol [Dulera 100 Mcg/5 Mcg Inhaler] 2 puff IH BID 07/04/15 Ciprofloxacin HCl [Cipro] 500 mg PO BID #60 tablet 07/14/16 Valacyclovir HCl [Valtrex -] 500 mg PO BID #60 tablet 07/14/16
[2016-07-14] MEDS ORDERED: PT OWN MED DRAWER 7, Y5N ONE (10:54)
[2016-07-14] MEDS: valACYclovir HCL 500 MG TABLET (FP) PO SCH (10:55)
[2016-07-14] MEDS: NAPROXEN 500 MG TABLET (FP) PO SCH (10:55)
[2016-07-14] MEDS: CYCLOSPORINE OU SCH (10:56)
[2016-07-14] MEDS: CIPROFLOXACIN 250 MG TABLET (RESTRICTED TO ID) PO SCH (10:56)
[2016-07-14 11:07] VITALS: BP 124/77; PULSE 90; TEMP 98.5
--- NOTE | 2016-07-14 15:58 | PATH ---
Surgical Pathology Report Patient Name: HEMAL SEPTEMBER [facility]. Rec. #: [id number] /Age/Gender: 1980 (Age: 35) / F Account: [id number] Location: [facility] MED/SURG Taken: 07/10/2016 Received: 07/12/2016 Reported: 07/14/2016 Physicians: Amanda Mack M.D. Specimen(s) Received PERIPHERAL BLOOD Clinical History Neutropenia, r/o MDS, r/o PNH, r/o lymphoma Final Diagnosis FLOW CYTOMETRY PERFORMED AND INTERPRET[facility] [place] ([id number]) SHOWED THE FOLLOWING: INTERPRETATION: There is no evidence of B or T-cell proliferative disorders or increased blasts. The monocytic cells are 17% of total events. Phenotype: In the sample analyzed, there is a mixed population of granulocytes, monocytes and lymphoid cells. CD34+ myeloblasts are < 0.1%. Granulocytes are 42% of total cells. Monocytes are 17% of total cells. There is no overt abnormal myeloid antigen expression. The B-cells (3% of total) appear polytypic. The T-cells (31% of total) show no de la torre T-cell antigenic deletion. PAROXYSMAL NOCTURNAL HEMOGLOBINURIA (PNH) ASSAY BY FLOW PERFORMED AND INTERPRETED AT [facility] [place] ([id number]) SHOWED THE FOLLOWING: INTERPRETATION: No phenotypic evidence of Paroxysmal Nocturnal Hemoglobulinuria (PNH). Phenotype: Immunophenotypic analysis was performed using gating antibodies CD45, GPH-A, CD15, CD14, CD64, CD59 as well as Fluorescent Aerolysin (FLAER). Red Blood Cells: No evidence of decreased or absent CD59 expression. Monocytes: No evidence of decreased or absent expression of FLAER. Granulocytes: No evidence of decreased or absent expression of FLAER. The sensitivities of this test established in this laboratory are as follows: RBC's (based on CD59): 0.01%. WBC (based on FLAER): 0.1%. Monocytes (based on FLAER): 0.1%. Electronically Signed Michael Yang M.D. Addendum Reported: 07/15/2016 Addendum Diagnosis MDS FISH performed and interpreted at [facility] in [place], [place] ([id number]) shows the following: INTERPRETATION: No evidence of deletion 5q or monosomy 5 is present. No evidence of deletion 7q or monosomy 7 is present. No evidence of trisomy 8 (+8) is present. No evidence of deletion 13q14 is present. No evidence of a rearrangement of 11q23. No evidence of a deletion of the p53 (17p13) locus. No evidence of deletion 20q12 is present. Michael Yang M.D. Gross Description Received are 2 green top tubes of peripheral blood which are sent [facility]. 07/12/2016 [facility]07/12/2016
--- NOTE | 2016-07-14 19:39 | PN ---
Progress Note (short form) - Note Progress Note: PAtient discharged earlier today by primary team. Flowcytometry shows no e/o leukemia/lymphoma. Increased monocytes. Differential --medication induced ? rituxan induced vs autoimmune vs post viral Discussed with Dr. Simms--patient to f/u with Dr. Simms on Tue at 11:15am Patient notified of the appointment and asked to return to ER if any fever/ chills/cough/SOB or any symptoms
[2016-07-15 08:07] LABS: SERUM IRON 50 ug/dL (27-159); TOTAL IRON BINDING CAPACITY 215 ug/dL (250-450); UIBC 165 ug/dL (131-425)
[2016-07-15 10:12] LABS: PARV B19 IGG 3.5 index (0.0-0.8); PARV B19 IGM 0.1 index (0.0-0.8)
[2016-07-16] MEDS ORDERED: IMMUN GLOB SQ SCH (10:00)
[2016-07-16] MEDS ORDERED: PRO SQ SCH (10:00)
[2016-07-16] MEDS ORDERED: IGA SQ SCH (10:00)
[2016-07-17 00:07] LABS: Hgb A2 3.1 % (0.7-3.1)
[2016-07-26 14:53] LABS: LOG 10 UNABLE TO CALCULATE
== END 2016-07-14 11:59 | disposition home or self-care (01) | DRG 660 ==
LOC: JER 09:58 → JERBED 12:28 → J8W 18:16
PROVIDERS: ADMIT Internal Medicine; ATTEND Internal Medicine
DX: D70.9 Neutropenia, unspecified (principal); D83.9 Common variable immunodeficiency, unspecified; J45.909 Unspecified asthma, uncomplicated; B34.9 Viral infection, unspecified; E87.6 Hypokalemia; E88.09 Other disorders of plasma-protein metabolism, not elsewhere classified; D64.9 Anemia, unspecified; G43.919 Migraine, unspecified, intractable, without status migrainosus; G25.81 Restless legs syndrome
CPT/HCPCS: 36415; 71250-TC; 74176-TC; 80048; 80053; 81003; 81015; 82607; 82728; 82747; 82784; 83021; 83540; 83550; 83605; 83615; 83735; 84100; 84439; 84443; 84703; 85014; 85025; 85384; 85610; 85651; 85660; 85730; 86140; 86308; 86644; 86645; 86663; 86664; 86665; 86747; 86777; 86778; 87040; 87086; 87389; 87497; 88300-TC; 93005; 93010; 99284-25; Q9967

== ENCOUNTER 2020-01-05 13:31 | Inpatient (IN) | payer OTHER ==
--- NOTE | 2020-01-05 14:32 | PDOC ---
History of Present Illness - General Chief Complaint: Vomiting/Diarrhea Stated Complaint: DIARRHEA/VOMITING History Source: Patient Exam Limitations: No Limitations - History of Present Illness Initial Comments: 01/05/20 14:32 39F with PMH of common variable immunodeficiency, membranoglomerulonephritis, autoimmune neutropenia, HTN, HLD, asthma, DVT and PE (on apixaban) presents to the ED with nausea and vomiting for several days. She's been unable to tolerate anything PO and unable to take her meds. Denies fever/chills, chest pain, SOB, abdominal pain, hematemesis, hematochezia, or dysuria. PMH: as in HPI SH: cholecystectomy, appendectomy Meds: sirolimus, lisinopril, fenofibrate, acyclovir, azithromycin, fluconazole, prednisone, amantidine Allergies: Reglan Tob/Etoh/Rec drugs: PCP: Dr. Ciaran GRIJALVA GENERAL/CONSTITUTIONAL: No fever or chills. No weakness. HEENT: No change in vision. No ear pain or discharge. No sore throat. CARDIOVASCULAR: No chest pain or shortness of breath RESPIRATORY: No cough, wheezing, or hemoptysis. GASTROINTESTINAL: No nausea, vomiting, diarrhea or constipation. GENITOURINARY: No dysuria, frequency, or change in urination. MUSCULOSKELETAL: No joint or muscle swelling or pain. No neck or back pain. SKIN: No rash NEUROLOGIC: No headache, vertigo, loss of consciousness, or change in strength/sensation. ENDOCRINE: No increased thirst. No abnormal weight change HEMATOLOGIC/LYMPHATIC: No anemia, easy bleeding, or history of blood clots. ALLERGIC/IMMUNOLOGIC: No hives or skin allergy. PE GENERAL: Awake, alert, and fully oriented; no acute distress HEAD: No signs of trauma, normocephalic, atraumatic EYES: PERRLA, EOMI, sclera anicteric, conjunctiva clear ENT: Auricles normal inspection, hearing grossly normal, nares patent, moist mucosa, oropharynx clear without exudates. NECK: Normal ROM, supple, no LAD, JVD, or masses HEART: Tachy, Regular rhythm, normal S1/S2, no murmurs, rubs or gallops, peripheral pulses normal and equal bilaterally. LUNGS: No distress, speaks full sentences, clear to auscultation bilaterally ABDOMEN: Soft, mildly tender w/o guarding, rebound, or masses EXTREMITIES: Normal inspection, Normal range of motion, no edema. No clubbing or cyanosis. NEUROLOGICAL: CNII-XII grossly intact. Normal speech, no focal sensorimotor deficits SKIN: Warm, Dry, normal turgor, no rashes or lesions noted Assessment and Plan 1. gastroenteritis 2. c. diff 3. medication toxicity Jose Rain, PGY1 Emergency Medicine Past History - Medical History Allergies/Adverse Reactions: Allergies Allergy/AdvReac Type Severity Reaction Status Date / Time theophylline [Theophylline] Allergy Severe Verified 01/05/20 13:36 metoclopramide HCl Allergy Verified 01/05/20 13:36 [From Reglan] Metronidazole HCl Allergy Rash Verified 01/05/20 13:36 [From Flagyl] Home Medications: Ambulatory Orders Immun Glob G(IgG)/Pro/Iga 0-50 [Hizentra 2 Gram/10 ml Vial] 50 ml SQ WEEKLY #0 ml 04/04/12 Cyclosporine [Restasis] 1 drop OU BID 07/04/15 Mometasone/Formoterol [Dulera 100 Mcg-5 Mcg Inhaler] 2 puff IH BID 07/04/15 Ciprofloxacin HCl [Cipro] 500 mg PO BID #60 tablet 07/14/16 Valacyclovir HCl [Valtrex -] 500 mg PO BID #60 tablet 07/14/16 Anemia: No Asthma: Yes Cancer: No Cardiac Disorders: Yes (MURMUR) CVA: (H/O MIGRAINE HEADACHES) COPD: No CHF: No Dementia: No Diabetes: No GI Disorders: No Disorders: Yes (NEPHROTIC SYNDROME) HTN: No Hypercholesterolemia: Yes Liver Disease: No Psychiatric Problems: Yes (depression) Seizures: No Thyroid Disease: No - Surgical History Abdominal Surgery: No Appendectomy: Yes Cardiac Surgery: No Cholecystectomy: No Lung Surgery: No Neurologic Surgery: No Orthopedic Surgery: No - Reproductive History Is Patient Now?: No - Psycho-Social/Smoking History Smoking Status: No Smoking History: Never smoked Years of Tobacco Use: 0 Have you smoked in the past 12 months: No Number of Cigarettes Smoked Daily: 0 Cigars Per Day: 0 - Substance Abuse Hx (Audit-C & DAST Scrn) How often the patient has a drink containing alcohol: Never Score: In Men: 4 or > Positive; In Women: 3 or > Positive: 0 Screen Result (Pos requires Nsg. Audit-10AR): Negative In the last yr the pt used illegal drug/Rx for NonMed reason: No Score: Yes response is considered Positive: 0 Screen Result (Positive result requires Nsg. DAST-10): Negative *Physical Exam - Vital Signs Last Vital Signs Temp Pulse Resp BP Pulse Ox 98.5 F 140 H 18 124/84 99 01/05/20 13:34 01/05/20 13:34 01/05/20 13:34 01/05/20 13:34 01/05/20 13:34 ED Treatment Course - LABORATORY CBC & Chemistry Diagram: 01/05/20 16:20 01/05/20 16:20 Medical Decision Making - Medical Decision Making 01/05/20 15:41 39F with PMH of common variable immunodeficiency, membranoglomerulonephritis, autoimmune neutropenia, HTN, HLD, asthma, DVT and PE (on apixaban) presents to the ED with nausea and vomiting for several days, unable to tolerate anything PO. Exam largely unremarkable, tachy, mildly diffuse abdominal tenderness. DDx: 1. gastroenteritis - pt is immunodeficient 2. c. diff - on chronic azithromycin 3. medication toxicity - sirolimus -given 1L LR, zofran, tylenol, and pepcid CBC WBC 3.0 K/mm3 (4.0-10.0) L 01/05/20 16:20 RBC 4.61 M/mm3 (3.60-5.2) 01/05/20 16:20 Hgb 12.0 GM/dL (10.7-15.3) 01/05/20 16:20 Hct 34.2 % (32.4-45.2) 01/05/20 16:20 MCV 74.2 fl (80-96) L 01/05/20 16:20 MCH 26.0 pg (25.7-33.7) 01/05/20 16:20 MCHC 35.0 g/dl (32.0-36.0) 01/05/20 16:20 RDW 15.0 % (11.6-15.6) D 01/05/20 16:20 Plt Count 133 K/MM3 (134-434) L D 01/05/20 16:20 MPV 7.5 fl (7.5-11.1) 01/05/20 16:20 Absolute Neuts (auto) 2.1 K/mm3 (1.5-8.0) 01/05/20 16:20 Neutrophils % 71.2 % (42.8-82.8) D 01/05/20 16:20 Lymphocytes % 13.0 % (8-40) D 01/05/20 16:20 Monocytes % 12.8 % (3.8-10.2) H 01/05/20 16:20 Eosinophils % 2.0 % (0-4.5) D 01/05/20 16:20 Basophils % 1.0 % (0-2.0) 01/05/20 16:20 Nucleated RBC % 1 % (0-0) H 01/05/20 16:20 - Pt is not neutropenic currently CMP Sodium 137 mmol/L (136-145) 01/05/20 16:20 Potassium 3.3 mmol/L (3.5-5.1) L 01/05/20 16:20 Chloride 101 mmol/L (98-107) 01/05/20 16:20 Carbon Dioxide 26 mmol/L (21-32) 01/05/20 16:20 Anion Gap 10 MMOL/L (8-16) 01/05/20 16:20 BUN 10.2 mg/dL (7-18) 01/05/20 16:20 Creatinine 0.7 mg/dL (0.55-1.3) 01/05/20 16:20 Est GFR (CKD-EPI)AfAm 125.61 01/05/20 16:20 Est GFR (CKD-EPI)NonAf 108.38 01/05/20 16:20 Random Glucose 96 mg/dL (74-106) 01/05/20 16:20 Lactic Acid 0.7 mmol/L (0.4-2.0) 01/05/20 16:20 Calcium 9.2 mg/dL (8.5-10.1) 01/05/20 16:20 Ferritin 160.5 ng/ml (8-388) 01/05/20 16:20 Total Bilirubin 0.4 mg/dL (0.2-1) 01/05/20 16:20 AST 37 U/L (15-37) 01/05/20 16:20 ALT 38 U/L (13-61) 01/05/20 16:20 Alkaline Phosphatase 153 U/L (45-117) H 01/05/20 16:20 LD Total 433 U/L (84-246) H 01/05/20 16:20 Creatine Kinase 54 U/L (26-192) 01/05/20 16:20 Troponin I < 0.02 ng/ml (0.00-0.05) 01/05/20 16:20 C-Reactive Protein 4.8 MG/DL (0.00-0.3) H 01/05/20 16:20 Total Protein 7.3 g/dl (6.4-8.2) 01/05/20 16:20 Albumin 3.4 g/dl (3.4-5.0) 01/05/20 16:20 Lipase 71 U/L (73-393) L 01/05/20 16:20 Serum , Qual Negative 01/05/20 16:20 - hypokalemic, given 20mEq potassium PO - Labs otherwise unremarkable 01/05/20 18:07 -pt drinking contrast, feels nauseus but no vomiting -HR improved from 140 to 120 after fluids 01/05/20 19:10 -signed out to night team -anticipate d/c if CT is negative Discharge - Discharge Information Problems reviewed: Yes Clinical Impression/Diagnosis: Nausea & vomiting Qualifiers: Vomiting type: unspecified Vomiting Intractability: unspecified Qualified Code(s): R11.2 - Nausea with vomiting, unspecified - Follow up/Referral Referrals: Carolin Harrell MD [Primary Care Provider] - - Patient Discharge Instructions - Post Discharge Activity
[2020-01-05] MEDS ORDERED: ONDANSETRON 4 MG/2 ML VIAL IVPUSH ONE (14:54)
[2020-01-05] MEDS ORDERED: LACTATED RINGERS SOLUTION 1000 ML INFUS.BAG IV ONE (15:02)
--- NOTE | 2020-01-05 16:05 | PDOC ---
Documentation entered by María Elena Lazcano SCRIBE, acting as scribe for Shanell Pang MD. Shanell Pang MD: This documentation has been prepared by the Jaleesa kilgore Xhesika, SCRIBE, under my direction and personally reviewed by me in its entirety. I confirm that the documentation accurately reflects all work, treatment, procedures, and medical decision making performed by me. Attending Attestation - Resident Resident Name: Jose Rain - ED Attending Attestation I have performed the following: I have examined & evaluated the patient, The case was reviewed & discussed with the resident, I agree w/resident's findings & plan, Exceptions are as noted - HPI HPI: 01/05/20 14:21 The patient is a 35y/o F with a past medical history of CVID, membranoglomerulonephritis, autoimmune neutropenia, HTN, HLD, asthma, DVT and PE (on apixaban) who presents to the ED with nausea, vomiting and inability to tolerate PO x4days. Pt states she is on Azithromycin. The patient denies chest pain, shortness of breath, headache and dizziness. Denies fever, chills, cough. Denies dysuria, frequency, urgency and hematuria. Allergies: Per Nursing Records - Physicial Exam PE: 01/05/20 14:21 awake alert lungs clear bilat heart tachycardia. no mrg.abd left sided ttp. no rebound no guarding. no cva tenderneess. alert oriented x 3. skin warm and dry no rash. - Medical Decision Making 01/05/20 14:23 39 yo F with h/o immunodeficiency, prior pe dvt. here with n/v abd pain. differential c diff, colitis, diverticulitis, dehydration electrolyte a bnormality. plan labs ivf antiemetics. ekg ct a/p ct a/p pending. signed out to night team. will lissette require reassememnt pending ct results. 01/20/20 18:34 Heart Score/ECG Review #1 General ECG Interpretation: Sinus Rhythm, Normal Intervals, No acute ischemic changes Compared to previous ECG there are: Other (sinus tachycardia 118 bpm, no st elevation or depression.) Discharge - Discharge Information Problems reviewed: Yes Clinical Impression/Diagnosis: Nausea and vomiting in adult, Colitis, Pericardial effusion Nausea & vomiting Qualifiers: Vomiting type: unspecified Vomiting Intractability: unspecified Qualified Code(s): R11.2 - Nausea with vomiting, unspecified Condition: Improved - Follow up/Referral - Patient Discharge Instructions - Post Discharge Activity
[2020-01-05] MEDS ORDERED: ACETAMINOPHEN 500 MG TABLET (FP) PO ONE (16:36)
[2020-01-05] MEDS ORDERED: ACETAMINOPHEN 325 MG TABLET (FP) ONE (16:38)
[2020-01-05] MEDS ORDERED: FAMOTIDINE 20 MG/50 ML IVPB 20 MG/50 ML MG IVPB ONE ×2 (16:42→16:44)
[2020-01-05 16:47] LABS: HEMATOCRIT 34.2 % (32.4-45.2); MEAN CELL VOLUME 74.2 fl (80-96); MEAN PLT VOLUME 7.5 fl (7.5-11.1); MONO % 12.8 % (3.8-10.2); NEUT % 71.2 % (42.8-82.8); PLATELET COUNT 133 K/MM3 (134-434); RBC 4.61 M/mm3 (3.60-5.2)
[2020-01-05 17:16] LABS: ALBUMIN 3.4 g/dl (3.4-5.0); ALK PHOS 153 U/L (45-117); ANION GAP 10 MMOL/L (8-16); BILIRUBIN,TOTAL 0.4 mg/dL (0.2-1); BLOOD UREA NITROGEN 10.2 mg/dL (7-18); CALCIUM 9.2 mg/dL (8.5-10.1); CHLORIDE 101 mmol/L (98-107); CO2 26 mmol/L (21-32); CREATININE 0.7 mg/dL (0.55-1.3); GLUCOSE,RANDOM 96 mg/dL (74-106); LIPASE 71 U/L (73-393); POTASSIUM 3.3 mmol/L (3.5-5.1); SGOT/AST 37 U/L (15-37); SGPT/ALT 38 U/L (13-61); SODIUM 137 mmol/L (136-145); TOT PROT 7.3 g/dl (6.4-8.2)
[2020-01-05 17:48] LABS: EPI CELLS 19 /uL (0-25.1); HYALINE CASTS 3 /uL (0-3.1); PH,URINE 5.5 (5.0-8.0); URINE APPEARANCE CLOUDY; URINE BACTERIA 66 /uL (0-1359); URINE BILIRUBIN 2+ (NEGATIVE); URINE COLOR DK YELLOW; URINE GLUCOSE (UA) NEGATIVE (NEGATIVE); URINE KETONE 1+ (NEGATIVE); URINE LEUK ESTERASE NEGATIVE (NEGATIVE); URINE NITRITE NEGATIVE (NEGATIVE); URINE PROTEIN 1+ (NEGATIVE); URINE RBC 13 /uL (0-23.9); URINE WBC 8 /uL (0-25.8)
[2020-01-05] MEDS ORDERED: POTASSIUM CHLORIDE ORAL LIQUID 20 MEQ/15 ML PO ONE (17:57)
[2020-01-05] MEDS ORDERED: POTASSIUM CHLORIDE ORAL LIQUID 20 MEQ/15 ML ONE (18:19)
--- NOTE | 2020-01-05 19:11 | PDOC ---
*Physical Exam - Vital Signs Last Vital Signs Temp Pulse Resp BP Pulse Ox 98 F 120 H 20 124/57 L 100 01/05/20 16:59 01/05/20 16:59 01/05/20 16:59 01/05/20 16:59 01/05/20 16:59 ED Treatment Course - LABORATORY CBC & Chemistry Diagram: 01/05/20 16:20 01/05/20 16:20 - ADDITIONAL ORDERS Additional order review: Laboratory Results 01/05/20 01/05/20 01/05/20 17:10 16:20 16:20 Sodium Potassium Chloride Carbon Dioxide Anion Gap BUN Creatinine Est GFR (CKD-EPI)AfAm Est GFR (CKD-EPI)NonAf Random Glucose Lactic Acid Calcium Ferritin 160.5 Total Bilirubin AST ALT Alkaline Phosphatase LD Total 433 H Creatine Kinase Troponin I C-Reactive Protein 4.8 H Total Protein Albumin Lipase Serum , Qual Negative Urine Color Dk yellow Urine Appearance Cloudy Urine pH 5.5 Ur Specific [place] 1.030 Urine Protein 1+ H Urine Glucose (UA) Negative Urine Ketones 1+ H Urine Blood Negative Urine Nitrite Negative Urine Bilirubin 2+ H Urine Urobilinogen 1.0 Ur Leukocyte Esterase Negative Urine WBC (Auto) 8 Urine RBC (Auto) 13 Urine Casts (Auto) 3 U Epithel Cells (Auto) 19 Urine Bacteria (Auto) 66 01/05/20 01/05/20 16:20 16:20 Sodium 137 Potassium 3.3 L Chloride 101 Carbon Dioxide 26 Anion Gap 10 BUN 10.2 Creatinine 0.7 Est GFR (CKD-EPI)AfAm 125.61 Est GFR (CKD-EPI)NonAf 108.38 Random Glucose 96 Lactic Acid 0.7 Calcium 9.2 Ferritin Total Bilirubin 0.4 AST 37 ALT 38 Alkaline Phosphatase 153 H LD Total Creatine Kinase 54 Troponin I < 0.02 C-Reactive Protein Total Protein 7.3 Albumin 3.4 Lipase 71 L Serum , Qual Urine Color Urine Appearance Urine pH Ur Specific [place] Urine Protein Urine Glucose (UA) Urine Ketones Urine Blood Urine Nitrite Urine Bilirubin Urine Urobilinogen Ur Leukocyte Esterase Urine WBC (Auto) Urine RBC (Auto) Urine Casts (Auto) U Epithel Cells (Auto) Urine Bacteria (Auto) 01/05/20 16:20 RBC 4.61 MCV 74.2 L MCHC 35.0 RDW 15.0 D MPV 7.5 Neutrophils % 71.2 D Lymphocytes % 13.0 D Monocytes % 12.8 H Eosinophils % 2.0 D Basophils % 1.0 - RADIOLOGY Radiology Studies Ordered: 01/05/20 21:42 Moderate-sized pericardial effusion. Circumferential thickening of the barrett of the descending and sigmoid colonic segments, suggesting the possibility of colitis. Cholecystectomy past. Retroverted uterus. One or more of the following dose reduction techniques were used: automated exposure control, adjustment of the mA and/or kV according to patient size, use of iterative reconstructive technique. THIS DOCUMENT HAS BEEN ELECTRONICALLY SIGNED Karthik Gallagher MD. 01/05/2020 20:41 EST - Medications Given in the ED: ED Medications Discontinued Medications Generic Name Dose Route Start Last Admin Trade Name Freq PRN Reason Stop Dose Admin Acetaminophen 650 mg 01/05/20 16:36 01/05/20 16:44 Tylenol - PO 01/05/20 16:37 650 mg ONCE ONE Administration Famotidine/Sodium Chloride 20 mg in 50 mls @ 100 mls/hr 01/05/20 16:42 01/05/20 16:44 Pepcid 20 Mg Premixed Ivpb - IVPB 01/05/20 17:11 100 mls/hr ONCE ONE Administration Lactated Ringer's 1,000 ml 01/05/20 15:02 01/05/20 16:37 Lactated Ringers Solution IV 01/05/20 15:03 1,000 ml NOW ONE Administration Ondansetron HCl 4 mg 01/05/20 14:54 01/05/20 16:37 Zofran Injection IVPUSH 01/05/20 14:55 4 mg ONCE ONE Administration Potassium Chloride 20 meq 01/05/20 17:57 01/05/20 18:20 Potassium Chloride Oral Liquid PO 01/05/20 17:58 20 meq ONCE ONE Administration Medical Decision Making - Medical Decision Making 01/05/20 19:07 In short, 39yo F CVID and autoimmune neutropenia, membranoproliferative glomerulonephritis presenting with N and V for 5 days with poor PO. Afebrile, tachy, largely normal labs. Will follow up CT abdomen / pelvis. Given oral contrast, due for CT at 19:40. Follow up CT, PO challenge, and dispo a ppropriately. EKG: Sinus tachycardic at 118, QTc 468, no ST changes 01/05/20 21:39 s/p additional 1L NS CT notable for moderate pericardial effusion, thickening suggestive of colitis Zosyn for antibiosis (Flagyl allergy) Admit for colitis and moderate pericardial effusion 8mm Dispo: Admit Tele PCP: Carolin Harrell 01/05/20 21:55 Pain is back, patient requests additional pain control Discussed admission, patient agrees [employer] sent Discharge - Discharge Information Problems reviewed: Yes Clinical Impression/Diagnosis: Nausea and vomiting in adult, Colitis, Pericardial effusion Nausea & vomiting Qualifiers: Vomiting type: unspecified Vomiting Intractability: unspecified Qualified Code(s): R11.2 - Nausea with vomiting, unspecified Condition: Guarded - Follow up/Referral Referrals: Carolin Harrell MD [Primary Care Provider] - - Patient Discharge Instructions - Post Discharge Activity
[2020-01-05] MEDS ORDERED: SODIUM CHLORIDE 0.9% 500 ML INFUS.BAG IV ONE (19:17)
[2020-01-05] MEDS ORDERED: CIPROFLOXACIN 400 MG/D5W 400 MG/200 ML IVPB IVPB ONE (21:41)
[2020-01-05] MEDS ORDERED: PIPERACILLIN/TAZOB 3.375 GM 3.375 GM in DEXTROSE 5%-WATER - 50 ML IVPB ONE (21:45)
[2020-01-05] MEDS ORDERED: ACETAMINOPHEN 1000 MG/100 ML VIAL (NON FORMULARY) IVPB ONE (21:55)
[2020-01-05] MEDS ORDERED: PIPERACILLIN/TAZOB 3.375 GM 3.375 GM/50 ML BAG IVPB ONE (22:03)
[2020-01-05] MEDS ORDERED: ACETAMINOPHEN INJECTION 100 ML IVPB ONE (22:03)
--- NOTE | 2020-01-06 00:02 | PN ---
Teaching Attending Note Name of Resident: Oswaldo Fong ATTENDING PHYSICIAN STATEMENT I saw and evaluated the patient. I reviewed the resident's note and discussed the case with the resident. I agree with the resident's findings and plan as documented. SUBJECTIVE: 39yoF with h/o CVID on Hizentra, membranous glomerlulonephritis in remission, DV T/PE on Eliquis, and left hip pain secondary to impingement who presents with 5 days of vomiting and diarrhea. Denies fever, chills, chest pain, SOB, lightheadedness, or syncope. Her GI symptoms have been worsening and today she was unable to tolerate any food or her oral medications so she presented to the ED. Patient also notes she had pericardial effusion several years ago but never developed tamponade or required pericardiocentesis. Patient was afebrile but tachycardic in the ED, noted leukocytosis and hypokalemia. CT abd/pelvis showed evidence of colitis and moderate pericardial effusion. She received 2L fluids, potassium repletion, and Zosyn and is admitted for further management. OBJECTIVE: Vital Signs - 24 hr 01/05/20 01/05/20 01/05/20 13:34 16:59 22:17 Temperature 98.5 F 98 F Pulse Rate 140 H Pulse Rate [ 120 H 114 H Right Apical] Respiratory 18 20 20 Rate Blood Pressure 124/84 Blood Pressure 124/57 L 123/79 [Left Arm] O2 Sat by Pulse 99 100 99 Oximetry (%) 01/06/20 01/06/20 00:00 01:02 Temperature 97.8 F Pulse Rate 108 H Pulse Rate [ Right Apical] Respiratory 20 20 Rate Blood Pressure 122/73 Blood Pressure [Left Arm] O2 Sat by Pulse 99 Oximetry (%) EXAM Gen: awake, alert, NAD HEENT: NC/AT CV: RRR, no MRG appreciated Resp: CTAB Abd: Soft, mild diffuse tenderness without rebound/guarding, hyperactive bowel sounds Ext: no edema Neuro: CN II-XII grossly intact Psych: AOx3, appropriate mood/affect Laboratory Results - last 24 hr 01/05/20 01/05/20 01/05/20 16:20 16:20 16:20 WBC 3.0 L RBC 4.61 Hgb 12.0 Hct 34.2 MCV 74.2 L MCH 26.0 MCHC 35.0 RDW 15.0 D Plt Count 133 L D MPV 7.5 Absolute Neuts (auto) 2.1 Neutrophils % 71.2 D Lymphocytes % 13.0 D Monocytes % 12.8 H Eosinophils % 2.0 D Basophils % 1.0 Nucleated RBC % 1 H Sodium 137 Potassium 3.3 L Chloride 101 Carbon Dioxide 26 Anion Gap 10 BUN 10.2 Creatinine 0.7 Est GFR (CKD-EPI)AfAm 125.61 Est GFR (CKD-EPI)NonAf 108.38 Random Glucose 96 Lactic Acid 0.7 Calcium 9.2 Ferritin Total Bilirubin 0.4 AST 37 ALT 38 Alkaline Phosphatase 153 H LD Total Creatine Kinase 54 Troponin I < 0.02 C-Reactive Protein Total Protein 7.3 Albumin 3.4 Lipase 71 L Serum , Qual Urine Color Urine Appearance Urine pH Ur Specific [place] Urine Protein Urine Glucose (UA) Urine Ketones Urine Blood Urine Nitrite Urine Bilirubin Urine Urobilinogen Ur Leukocyte Esterase Urine WBC (Auto) Urine RBC (Auto) Urine Casts (Auto) U Epithel Cells (Auto) Urine Bacteria (Auto) 01/05/20 01/05/20 01/05/20 16:20 16:20 17:10 WBC RBC Hgb Hct MCV MCH MCHC RDW Plt Count MPV Absolute Neuts (auto) Neutrophils % Lymphocytes % Monocytes % Eosinophils % Basophils % Nucleated RBC % Sodium Potassium Chloride Carbon Dioxide Anion Gap BUN Creatinine Est GFR (CKD-EPI)AfAm Est GFR (CKD-EPI)NonAf Random Glucose Lactic Acid Calcium Ferritin 160.5 Total Bilirubin AST ALT Alkaline Phosphatase LD Total 433 H Creatine Kinase Troponin I C-Reactive Protein 4.8 H Total Protein Albumin Lipase Serum , Qual Negative Urine Color Dk yellow Urine Appearance Cloudy Urine pH 5.5 Ur Specific [place] 1.030 Urine Protein 1+ H Urine Glucose (UA) Negative Urine Ketones 1+ H Urine Blood Negative Urine Nitrite Negative Urine Bilirubin 2+ H Urine Urobilinogen 1.0 Ur Leukocyte Esterase Negative Urine WBC (Auto) 8 Urine RBC (Auto) 13 Urine Casts (Auto) 3 U Epithel Cells (Auto) 19 Urine Bacteria (Auto) 66 ASSESSMENT AND PLAN: 39yoF with 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 Sepsis secondary to colitis - continue empiric Zosyn - f/u C. diff - continue fluids until able to toelrate PO - hold sirolimus, prednisone pending discussion with her outpatient map maker Pericardial effusion - Echo - cardiology consult - telemetry CVID, membranous glomerulonephritis: Continue acyclovir, fluconazole, azithromycin DVT ppx: continue Eliquis
--- NOTE | 2020-01-06 00:56 | HP ---
CHIEF COMPLAINT: nausea and vomiting since Tuesday PCP: Dr. 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 Patient states that her symptoms have been worsening and today she was unable to tolerate any food or her oral medications. Patient also notes she had pericardial effusion several years ago but never developed tamponade. CT abd/pelvis showed evidence of colitis and moderate pericardial effusion. Endorses headaches that have been getting worse throughout the week. Denies fever, chills, chest pain, SOB, lightheadedness, or syncope. 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, DVT/PE (on Eliquis), and left hip pain PAST SURGICAL HISTORY: Social History: Smoking:denies Alcohol:denies Drugs: denies Allergies theophylline [Theophylline] Allergy (Severe, Verified 01/05/20 13:36) ACQUIRED HEMOPHILIA metoclopramide HCl [From Reglan] Allergy (Verified 01/05/20 13:36) Metronidazole HCl [From Flagyl] Allergy (Verified 01/05/20 13:36) Rash HOME MEDICATIONS: Home Medications Medication Instructions Recorded Immun Glob G(IgG)/Pro/Iga 0-50 50 ml SQ WEEKLY #0 ml 04/04/12 [Hizentra 2 Gram/10 ml Vial] Cyclosporine [Restasis] 1 drop OU BID 07/04/15 Mometasone/Formoterol [Dulera 100 2 puff IH BID 07/04/15 Mcg-5 Mcg Inhaler] Ciprofloxacin HCl [Cipro] 500 mg PO BID #60 tablet 07/14/16 Valacyclovir HCl [Valtrex -] 500 mg PO BID #60 tablet 07/14/16 REVIEW OF SYSTEMS CONSTITUTIONAL: +fever, chills, weakness, malaise, loss of appetite, headache Absent: diaphoresis, generalized weakness, weight change HEENT: Absent: rhinorrhea, nasal congestion, throat pain, throat swelling, difficulty swallowing, mouth swelling, ear pain, eye pain, visual changes CARDIOVASCULAR: Absent: chest pain, syncope, palpitations, irregular heart rate, lightheadedness, peripheral edema RESPIRATORY: Absent: cough, shortness of breath, dyspnea with exertion, orthopnea, wheezing, stridor, hemoptysis GASTROINTESTINAL: +abdominal pain, vomiting, diarrhea Absent: abdominal distension, nausea, constipation, melena, hematochezia GENITOURINARY: Absent: dysuria, frequency, urgency, hesitancy, hematuria, flank pain, genital pain MUSCULOSKELETAL: Absent: myalgia, arthralgia, joint swelling, back pain, neck pain SKIN: Absent: rash, itching, pallor HEMATOLOGIC/IMMUNOLOGIC: Absent: easy bleeding, easy bruising, lymphadenopathy, frequent infections ENDOCRINE: Absent: unexplained weight gain, unexplained weight loss, heat intolerance, cold intolerance NEUROLOGIC: Absent: headache, focal weakness or paresthesias, dizziness, unsteady gait, seizure, mental status changes, bladder or bowel incontinence PSYCHIATRIC: Absent: anxiety, depression, suicidal or homicidal ideation, hallucinations. PHYSICAL EXAMINATION Vital Signs - 24 hr 01/05/20 01/05/20 01/05/20 13:34 16:59 22:17 Temperature 98.5 F 98 F Pulse Rate 140 H Pulse Rate [ 120 H 114 H Right Apical] Respiratory 18 20 20 Rate Blood Pressure 124/84 Blood Pressure 124/57 L 123/79 [Left Arm] O2 Sat by Pulse 99 100 99 Oximetry (%) GENERAL: AAOx3, in no acute distress HEENT: NCAT, PERRLA, EOMI, sclera anicteric, conjunctiva clear, oropharynx clear w/o exudates. MMM. NECK: Normal ROM, supple, no lymphadenopathy, JVD, or masses LUNGS: CTABL no wheezes/ rhonchi/ rales. No distress, speaks in full sentences. No increased work of breathing. HEART: RRR, normal S1 S2, no M/R/G, peripheral pulses 2+ and equal b/l ABDOMEN: Soft, diffuse tenderness in all quadrents, + BS. No guarding or rebound. No hepatomegaly or splenomegaly. MSK: ROM WNL EXTREMITIES: Normal inspection. No peripheral edema. No clubbing or cyanosis. NEUROLOGICAL: CN II-XII intact. Normal speech, normal gait, no focal sensorimotor deficits. SKIN: Warm, Dry, normal turgor, no rashes or lesions noted Laboratory Results - last 24 hr CBC, BMP 01/05/20 16:20 01/05/20 16:20 01/05/20 01/05/20 01/05/20 16:20 16:20 16:20 WBC 3.0 L RBC 4.61 Hgb 12.0 Hct 34.2 MCV 74.2 L MCH 26.0 MCHC 35.0 RDW 15.0 D Plt Count 133 L D MPV 7.5 Absolute Neuts (auto) 2.1 Neutrophils % 71.2 D Lymphocytes % 13.0 D Monocytes % 12.8 H Eosinophils % 2.0 D Basophils % 1.0 Nucleated RBC % 1 H Sodium 137 Potassium 3.3 L Chloride 101 Carbon Dioxide 26 Anion Gap 10 BUN 10.2 Creatinine 0.7 Est GFR (CKD-EPI)AfAm 125.61 Est GFR (CKD-EPI)NonAf 108.38 Random Glucose 96 Lactic Acid 0.7 Calcium 9.2 Ferritin Total Bilirubin 0.4 AST 37 ALT 38 Alkaline Phosphatase 153 H LD Total Creatine Kinase 54 Troponin I < 0.02 C-Reactive Protein Total Protein 7.3 Albumin 3.4 Lipase 71 L Serum , Qual Urine Color Urine Appearance Urine pH Ur Specific [place] Urine Protein Urine Glucose (UA) Urine Ketones Urine Blood Urine Nitrite Urine Bilirubin Urine Urobilinogen Ur Leukocyte Esterase Urine WBC (Auto) Urine RBC (Auto) Urine Casts (Auto) U Epithel Cells (Auto) Urine Bacteria (Auto) 01/05/20 01/05/20 01/05/20 16:20 16:20 17:10 WBC RBC Hgb Hct MCV MCH MCHC RDW Plt Count MPV Absolute Neuts (auto) Neutrophils % Lymphocytes % Monocytes % Eosinophils % Basophils % Nucleated RBC % Sodium Potassium Chloride Carbon Dioxide Anion Gap BUN Creatinine Est GFR (CKD-EPI)AfAm Est GFR (CKD-EPI)NonAf Random Glucose Lactic Acid Calcium Ferritin 160.5 Total Bilirubin AST ALT Alkaline Phosphatase LD Total 433 H Creatine Kinase Troponin I C-Reactive Protein 4.8 H Total Protein Albumin Lipase Serum , Qual Negative Urine Color Dk yellow Urine Appearance Cloudy Urine pH 5.5 Ur Specific [place] 1.030 Urine Protein 1+ H Urine Glucose (UA) Negative Urine Ketones 1+ H Urine Blood Negative Urine Nitrite Negative Urine Bilirubin 2+ H Urine Urobilinogen 1.0 Ur Leukocyte Esterase Negative Urine WBC (Auto) 8 Urine RBC (Auto) 13 Urine Casts (Auto) 3 U Epithel Cells (Auto) 19 Urine Bacteria (Auto) 66 ASSESSMENT/PLAN: 39 y/o female with PMX CVID (on Hizentra), membranous glomerlulonephritis, DVT/PE (on Eliquis), and left hip pain presenting with nausea, vomiting, and diarrhea for 5 days. Admitted for sepsis secondary to colitis. #Sepsis secondary to Colitis -CT- thickening of barrett of the descending colon suggestive of colitis -c/w IV zosyn -d/c ciprfloxacin that was given in ED -IVF at 75 mls/hr -clear liquid diet as tolerated -C. 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 - New Patient This patient is new to me today: Yes Date on this admission: 01/06/20 - Critical Care Critical Care patient: No ATTENDING PHYSICIAN STATEMENT I saw and evaluated the patient. I reviewed the resident's note and discussed the case with the resident. I agree with the resident's findings and plan as documented. SUBJECTIVE: OBJECTIVE: ASSESSMENT AND PLAN:
[2020-01-06] MEDS ORDERED: PIPERACILLIN/TAZOBACTAM 3.375 GM VIAL IVPB ONE ×2 (01:17→09:03)
[2020-01-06] MEDS ORDERED: DEXTROSE 5%-WATER - 50 ML IVPB ONE ×2 (01:17→09:04)
[2020-01-06] MEDS: SODIUM CHLORIDE 1,000 ML IV SCH (01:30)
[2020-01-06] MEDS: PIPERACILLIN/TAZOB 3.375 GM 3.375 GM in DEXTROSE 5%-WATER - 50 ML IVPB SCH ×2 (01:31→09:05)
[2020-01-06] MEDS: IBUPROFEN 800 MG/8 ML IJ IVPB PRN ×2 (03:00→09:03)
[2020-01-06] MEDS ORDERED: HEPARIN NA (PORCINE) 5,000 UNITS/ML 1ML VIAL SQ SCH (06:00)
--- NOTE | 2020-01-06 07:42 | CON.CARD ---
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 She has had pericardial effusion on prior echocardiograms without tamponade. CT abd/pelvis showed evidence of colitis and small pericardial effusion. Complex history with admission to [facility] with Klebssiella UTI, acute DVT/PE and acute biventricular heart failure EF 20% in June 2019. She was tr ansferred to the [facility] where she stayed until October 2019. LV function is unknown at this point. - Past Medical History SENIOR ACCOUNTING CLERK: Yes: Migraine Pulmonary: Yes: Asthma Renal/: Yes: Other (membranous glomerulonephritis-remission) ...LMP: 10/30/18 ...: No Rheumatology: Yes: Other (Common Variable Immunodeficiency) - Past Surgical History Past Surgical History: Yes: Appendectomy - Alcohol/Substance Use Hx Alcohol Use: No History of Substance Use: reports: None - Smoking History Smoking history: Never smoked Have you smoked in the past 12 months: No Aproximately how many cigarettes per day: 0 - Social History ADL: Independent History of Recent Travel: No Home Medications - Allergies Allergies/Adverse Reactions: Allergies Allergy/AdvReac Type Severity Reaction Status Date / Time theophylline [Theophylline] Allergy Severe Verified 01/05/20 13:36 metoclopramide HCl Allergy Verified 01/05/20 13:36 [From Reglan] Metronidazole HCl Allergy Rash Verified 01/05/20 13:36 [From Flagyl] - Home Medications Home Medications: Ambulatory Orders Immun Glob G(IgG)/Pro/Iga 0-50 [Hizentra 2 Gram/10 ml Vial] 50 ml SQ WEEKLY #0 ml 04/04/12 Cyclosporine [Restasis] 1 drop OU BID 07/04/15 Mometasone/Formoterol [Dulera 100 Mcg-5 Mcg Inhaler] 2 puff IH BID 07/04/15 Ciprofloxacin HCl [Cipro] 500 mg PO BID #60 tablet 07/14/16 Valacyclovir HCl [Valtrex -] 500 mg PO BID #60 tablet 07/14/16 Review of Systems - Review of Systems Constitutional: denies: Chills Eyes: reports: No Symptoms HENT: reports: No Symptoms Neck: reports: No Symptoms Cardiovascular: denies: Chest Pain, Palpitations, Shortness of Breath Respiratory: reports: No Symptoms Gastrointestinal: reports: Abdominal Pain, Diarrhea Vital Signs: Vital Signs Temperature 7.9 F L 01/06/20 05:03 Pulse Rate 108 H 01/06/20 00:00 Respiratory Rate 20 01/06/20 05:03 Blood Pressure 124/56 L 01/06/20 05:03 O2 Sat by Pulse Oximetry (%) 99 01/06/20 05:00 Constitutional: Yes: Well Nourished, No Distress Eyes: Yes: Conjunctiva Clear HENT: Yes: Atraumatic, Normocephalic Neck: Yes: Supple, Trachea Midline Respiratory: Yes: Regular, CTA Bilaterally Cardiovascular: Yes: Regular Rate and Rhythm JVD: No Heart Sounds: Yes: S1, S2 Murmur: No: Systolic Murmur, Diastolic Murmur Edema: No - Other Data Labs, Other Data: CBC, BMP 01/05/20 16:20 01/05/20 16:20 Troponin, BNP 01/05/20 16:20 Troponin I < 0.02 Troponin, BNP 01/05/20 16:20 Troponin I < 0.[address] T changes Telem No arrhythmia Assessment/Plan CVID, autoimmune neutropenia, autoimmune hemophilia, autoimmune membraneous glomerulonephritis, recurrent neutropenic fevers with long hospital stay at the [facility]. History of cardiomyopathy with biventricular failure in the setting of infection, DVT/PE. Normal hemodynamics with small pericardial effusion. No clinical signs of tamponade Obtain echo resume home ACEI if no further contrast studies are planned.
[2020-01-06] MEDS ORDERED: POTASSIUM CHLORIDE TABS 20 MEQ TABLET.ER (FP) PO ONE ×2 (10:15→16:23)
[2020-01-06] MEDS ORDERED: ACETAMINOPHEN 325 MG TABLET (FP) PO PRN (10:23)
[2020-01-06] MEDS: APIXABAN 2.5 MG TABLET PO SCH ×2 (11:47→21:43)
[2020-01-06] MEDS: KETOROLAC TROMETHAMINE 15 MG/ML VIAL IM PRN ×2 (11:47→17:47)
--- NOTE | 2020-01-06 12:42 | EKG ---
Test Reason : Blood Pressure : / mmHG Vent. Rate : 118 BPM Atrial Rate : 118 BPM P-R Int : 158 ms QRS Dur : 074 ms QT Int : 334 ms P-R-T Axes : 066 -16 067 degrees QTc Int : 468 ms SINUS TACHYCARDIA POSSIBLE LEFT ATRIAL ENLARGEMENT BORDERLINE ECG WHEN COMPARED WITH ECG OF 09-JUL-2016 10:13, NO SIGNIFICANT CHANGE WAS FOUND Confirmed by Og Hardy ([id number]) on 01/06/2020 12:41:44 PM Referred By: Confirmed By:Og Hardy
[2020-01-06 12:49] LABS: BASO % 0.4 % (0-2.0); EOS % 4.6 % (0-4.5); HEMATOCRIT 28.3 % (32.4-45.2); HEMOGLOBIN 9.8 GM/dL (10.7-15.3); MCH 25.8 pg (25.7-33.7); MCHC 34.7 g/dl (32.0-36.0); MEAN CELL VOLUME 74.4 fl (80-96); MEAN PLT VOLUME 7.6 fl (7.5-11.1); PLATELET COUNT 121 K/MM3 (134-434); RDW 14.9 % (11.6-15.6); WHITE BLOOD COUNT 2.3 K/mm3 (4.0-10.0)
[2020-01-06] MEDS ORDERED: ONDANSETRON 4 MG/2 ML VIAL IVPUSH ONE (13:05)
[2020-01-06] MEDS: ONDANSETRON 4 MG/2 ML VIAL IVPUSH PRN (13:12)
--- NOTE | 2020-01-06 13:16 | PN ---
Teaching Attending Note Name of Resident: Aleisha Wright ATTENDING PHYSICIAN STATEMENT I saw and evaluated the patient. I reviewed the resident's note and discussed the case with the resident. I agree with the resident's findings and plan as documented. SUBJECTIVE: pt seen and examined OBJECTIVE: Last Vital Signs Temp Pulse Resp BP Pulse Ox 98.1 F 111 H 20 129/84 99 01/06/20 09:00 01/06/20 09:00 01/06/20 09:00 01/06/20 09:00 01/06/20 09:00 GENERAL: Awake, alert, and fully oriented, in no acute distress. HEAD: Normal with no signs of trauma. EYES: Pupils equal, round and reactive to light, sclera anicteric, conjunctiva clear. LUNGS: Breath sounds equal, clear to auscultation bilaterally. No wheezes, and no crackles. No accessory muscle use. HEART: Regular rate and rhythm, normal S1 and S2 ABDOMEN: Soft, nontender, not distended MUSCULOSKELETAL: Normal range of motion at all joints. No bony deformities or tenderness. No CVA tenderness. LOWER EXTREMITIES: 2+ pulses, warm, well-perfused. No calf tenderness. No peripheral edema. NEUROLOGICAL: Cranial nerves II-XII intact. Normal speech. CBCD WBC 2.3 K/mm3 (4.0-10.0) L 01/06/20 12:43 RBC 3.80 M/mm3 (3.60-5.2) 01/06/20 12:43 Hgb 9.8 GM/dL (10.7-15.3) L 01/06/20 12:43 Hct 28.3 % (32.4-45.2) L D 01/06/20 12:43 MCV 74.4 fl (80-96) L 01/06/20 12:43 MCHC 34.7 g/dl (32.0-36.0) 01/06/20 12:43 RDW 14.9 % (11.6-15.6) 01/06/20 12:43 Plt Count 121 K/MM3 (134-434) L 01/06/20 12:43 MPV 7.6 fl (7.5-11.1) 01/06/20 12:43 CMP Sodium 137 mmol/L (136-145) 01/05/20 16:20 Potassium 3.3 mmol/L (3.5-5.1) L 01/05/20 16:20 Chloride 101 mmol/L (98-107) 01/05/20 16:20 Carbon Dioxide 26 mmol/L (21-32) 01/05/20 16:20 Anion Gap 10 MMOL/L (8-16) 01/05/20 16:20 BUN 10.2 mg/dL (7-18) 01/05/20 16:20 Creatinine 0.7 mg/dL (0.55-1.3) 01/05/20 16:20 Calcium 9.2 mg/dL (8.5-10.1) 01/05/20 16:20 Total Bilirubin 0.4 mg/dL (0.2-1) 01/05/20 16:20 AST 37 U/L (15-37) 01/05/20 16:20 ALT 38 U/L (13-61) 01/05/20 16:20 Alkaline Phosphatase 153 U/L (45-117) H 01/05/20 16:20 Total Protein 7.3 g/dl (6.4-8.2) 01/05/20 16:20 Albumin 3.4 g/dl (3.4-5.0) 01/05/20 16:20 Active Medications Acetaminophen (Tylenol -) 650 mg PO Q6H PRN PRN Reason: Fever Or Pain Apixaban (Eliquis -) 2.5 mg PO BID [facility] Last Admin: 01/06/20 11:47 Dose: 2.5 mg Documented by: Diphenhydramine HCl (Benadryl Injection -) 25 mg IVPUSH BID PRN PRN Reason: NAUSEA Sodium Chloride (Normal Saline -) 1,000 mls @ 75 mls/hr IV ASDIR [facility] Last Admin: 01/06/20 01:30 Dose: 75 mls/hr Documented by: Ketorolac Tromethamine (Toradol Injection -) 15 mg IM Q6H PRN PRN Reason: PAIN LEVEL 7 - 10 Stop: 01/11/20 11:24 Last Admin: 01/06/20 11:47 Dose: 15 mg Documented by: Ondansetron HCl (Zofran Injection) 4 mg IVPUSH Q6H PRN PRN Reason: NAUSEA AND/OR VOMITING ASSESSMENT AND PLAN: 39yoF with 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
[2020-01-06 13:23] LABS: ALBUMIN 2.8 g/dl (3.4-5.0); BILIRUBIN,TOTAL 0.4 mg/dL (0.2-1); BLOOD UREA NITROGEN 7.8 mg/dL (7-18); CALCIUM 8.5 mg/dL (8.5-10.1); CREATININE 0.4 mg/dL (0.55-1.3); MAGNESIUM 1.7 mg/dL (1.8-2.4); PHOSPHOROUS 2.8 mg/dL (2.5-4.9); POTASSIUM 3.1 mmol/L (3.5-5.1); TOT PROT 5.8 g/dl (6.4-8.2)
[2020-01-06 13:58] LABS: ANISOCYTOSIS 1+; MACROCYTOSIS 0; OVALOCYTE 1+; PLATELET ESTIMATE DECREASED
--- NOTE | 2020-01-06 14:13 | PN ---
Physical Exam: SUBJECTIVE: Patient seen and examined at bedside, reports multiple episodes of diarrhea, with cramping, no blood in stool. reports that she has been on antibiotics for about a month ( Azithro + Cipro) for a left toe wound/infection. Denies any fever, chills nausea, vomiting, chest pain, SOB, dysuria. OBJECTIVE: Vital Signs Period Temp Pulse Resp BP Sys/Rayo Pulse Ox Last 24 Hr 7.9 F-98.1 F 108-120 20-20 122-129/56-84 99-100 GENERAL: AAOx3, in no acute distress HEENT: NCAT, PERRLA, EOMI, sclera anicteric, conjunctiva clear, oropharynx clear w/o exudates. MMM. NECK: Normal ROM, supple, no lymphadenopathy, JVD, or masses LUNGS: CTABL no wheezes/ rhonchi/ rales. No distress, speaks in full sentences. No increased work of breathing. HEART: RRR, normal S1 S2, no M/R/G, peripheral pulses 2+ and equal b/l ABDOMEN: Soft, non-tender, + BS. No guarding or rebound. No hepatomegaly or splenomegaly. MSK: ROM WNL, NO CVA tenderness EXTREMITIES: Normal inspection. No peripheral edema. No clubbing or cyanosis. NEUROLOGICAL: CN II-XII intact. Normal speech, gait not observed, no focal sensorimotor deficits. PSYCH: Normal mood, normal affect. SKIN: Warm, Dry, normal turgor, no rashes or lesions noted Laboratory Results - last 24 hr 01/05/20 01/05/20 01/05/20 16:20 16:20 16:20 WBC 3.0 L RBC 4.61 Hgb 12.0 Hct 34.2 MCV 74.2 L MCH 26.0 MCHC 35.0 RDW 15.0 D Plt Count 133 L D MPV 7.5 Absolute Neuts (auto) 2.1 Neutrophils % 71.2 D Lymphocytes % 13.0 D Monocytes % 12.8 H Eosinophils % 2.0 D Basophils % 1.0 Nucleated RBC % 1 H Sodium 137 Potassium 3.3 L Chloride 101 Carbon Dioxide 26 Anion Gap 10 BUN 10.2 Creatinine 0.7 Est GFR (CKD-EPI)AfAm 125.61 Est GFR (CKD-EPI)NonAf 108.38 Random Glucose 96 Lactic Acid 0.7 Calcium 9.2 Phosphorus Magnesium Ferritin Total Bilirubin 0.4 AST 37 ALT 38 Alkaline Phosphatase 153 H LD Total Creatine Kinase 54 Troponin I < 0.02 C-Reactive Protein Total Protein 7.3 Albumin 3.4 Lipase 71 L Serum , Qual Urine Color Urine Appearance Urine pH Ur Specific [place] Urine Protein Urine Glucose (UA) Urine Ketones Urine Blood Urine Nitrite Urine Bilirubin Urine Urobilinogen Ur Leukocyte Esterase Urine WBC (Auto) Urine RBC (Auto) Urine Casts (Auto) U Epithel Cells (Auto) Urine Bacteria (Auto) COVID-19 (SG) 01/05/20 01/05/20 01/05/20 16:20 16:20 16:20 WBC RBC Hgb Hct MCV MCH MCHC RDW Plt Count MPV Absolute Neuts (auto) Neutrophils % Lymphocytes % Monocytes % Eosinophils % Basophils % Nucleated RBC % Sodium Potassium Chloride Carbon Dioxide Anion Gap BUN Creatinine Est GFR (CKD-EPI)AfAm Est GFR (CKD-EPI)NonAf Random Glucose Lactic Acid Calcium Phosphorus Magnesium Ferritin 160.5 Total Bilirubin AST ALT Alkaline Phosphatase LD Total 433 H Creatine Kinase Troponin I C-Reactive Protein 4.8 H Total Protein Albumin Lipase Serum , Qual Negative Urine Color Urine Appearance Urine pH Ur Specific [place] Urine Protein Urine Glucose (UA) Urine Ketones Urine Blood Urine Nitrite Urine Bilirubin Urine Urobilinogen Ur Leukocyte Esterase Urine WBC (Auto) Urine RBC (Auto) Urine Casts (Auto) U Epithel Cells (Auto) Urine Bacteria (Auto) COVID-19 (SG) Not detected 01/05/20 01/06/20 01/06/20 17:10 12:43 12:43 WBC 2.3 L RBC 3.80 Hgb 9.8 L Hct 28.3 L D MCV 74.4 L MCH 25.8 MCHC 34.7 RDW 14.9 Plt Count 121 L MPV 7.6 Absolute Neuts (auto) 1.5 Neutrophils % 65.0 Lymphocytes % 13.0 Monocytes % 17.0 H Eosinophils % 4.6 H D Basophils % 0.4 Nucleated RBC % 1 H Sodium 140 Potassium 3.1 L Chloride 107 Carbon Dioxide 20 L Anion Gap 12 BUN 7.8 Creatinine 0.4 L Est GFR (CKD-EPI)AfAm 151.00 Est GFR (CKD-EPI)NonAf 130.29 Random Glucose 94 Lactic Acid Calcium 8.5 Phosphorus 2.8 Magnesium 1.7 L Ferritin Total Bilirubin 0.4 AST 22 ALT 25 Alkaline Phosphatase 126 H LD Total Creatine Kinase Troponin I C-Reactive Protein Total Protein 5.8 L Albumin 2.8 L Lipase Serum , Qual Urine Color Dk yellow Urine Appearance Cloudy Urine pH 5.5 Ur Specific [place] 1.030 Urine Protein 1+ H Urine Glucose (UA) Negative Urine Ketones 1+ H Urine Blood Negative Urine Nitrite Negative Urine Bilirubin 2+ H Urine Urobilinogen 1.0 Ur Leukocyte Esterase Negative Urine WBC (Auto) 8 Urine RBC (Auto) 13 Urine Casts (Auto) 3 U Epithel Cells (Auto) 19 Urine Bacteria (Auto) 66 COVID-19 (SG) Active Medications Generic Name Dose Route Start Last Admin Trade Name Freq PRN Reason Stop Dose Admin Acetaminophen 650 mg 01/06/20 10:23 Tylenol - PO Q6H PRN Fever Or Pain Apixaban 2.5 mg 01/06/20 10:30 01/06/20 11:47 Eliquis - PO 2.5 mg BID TING Administration Diphenhydramine HCl 25 mg 01/06/20 13:05 01/06/20 13:12 Benadryl Injection - IVPUSH 25 mg BID PRN Administration NAUSEA Sodium Chloride 1,000 mls @ 75 mls/hr 01/06/20 01:15 01/06/20 01:30 Normal Saline - IV 75 mls/hr ASDIR TING Administration Ketorolac Tromethamine 15 mg 01/06/20 11:25 01/06/20 11:47 Toradol Injection - IM 01/11/20 11:24 15 mg Q6H PRN Administration PAIN LEVEL 7 - 10 Ondansetron HCl 4 mg 01/06/20 13:06 01/06/20 13:12 Zofran Injection IVPUSH 4 mg Q6H PRN Administration NAUSEA AND/OR VOMITING 01/04 CTAB: Poor oral contrast enhancement of the bowel loops limiting this exam. Thickening of the sigmoid colon wall and to a lesser extent the descending and transverse colon wall including the hepatic flexure suggestive of colitis. Status post cholecystectomy surgical metallic clips are present. Borderline hepa tosplenomegaly. Small pericardial effusion measuring 7 mm in depth. ASSESSMENT/PLAN: 39 y/o female with PMX CVID (on Hizentra), membranous glomerlulonephritis, DVT/PE (on Eliquis), and left hip pain presenting with nausea, vomiting, and diarrhea for 5 days, CTAB suggestive of colitis. #Acute Diarrhea and vomiting - Likely 2/2 to recent antibiotic use vs immunosuppressive Rx and neutropenia - CTAB: thickening of barrett of the descending colon suggestive of colitis - Continue IVF at 75 mls/hr - C. diff test: Toxin -, Antigen + - ID is consulted, pending recs #Pericardial Effusion - CTAB: Small pericardial effusion measuring 7 mm in depth - cardiology consulted, recs appreciated Ordered Echo for further evaluation - continue to monitor #Migraine - Continue Ketorolac, Benadryl and Zofran #Left Hip Pain - Ketorolac PRN, Tylenol PRN # Hx of CVID on IVIG # Hx of membranous glomerulonephritis - continue home meds # Hx of DVT/PE - Continue Apixaban #FEN - IVF NS @ 75 mls/hr - Continue to monitor electrolytes - clear liquid diet as tolerated #DVT - Visit type - Emergency Visit Emergency Visit: Yes ED Registration Date: 01/05/20 Care time: The patient presented to the Emergency Department on the above date and was hospitalized for further evaluation of their emergent condition. - New Patient This patient is new to me today: No - Critical Care Critical Care patient: No - Discharge Referral Referred to [facility] No ATTENDING PHYSICIAN STATEMENT I saw and evaluated the patient. I reviewed the resident's note and discussed the case with the resident. I agree with the resident's findings and plan as documented. SUBJECTIVE: OBJECTIVE: ASSESSMENT AND PLAN:
[2020-01-06] MEDS: VANCOMYCIN 250 MG/5 ML ORAL SOLUTION PO SCH (17:01)
[2020-01-06] MEDS ORDERED: ACETAMINOPHEN 500 MG TABLET (FP) PO ONE (20:32)
[2020-01-06] MEDS ORDERED: MORPHINE SULFATE 2 MG/ML VIAL IVPUSH ONE (20:32)
[2020-01-07] MEDS: VANCOMYCIN 250 MG/5 ML ORAL SOLUTION PO SCH ×5 (00:33→23:48)
[2020-01-07] MEDS: ONDANSETRON 4 MG/2 ML VIAL IVPUSH PRN ×2 (03:33→10:59)
[2020-01-07] MEDS: SODIUM CHLORIDE 1,000 ML IV SCH ×2 (03:47→16:57)
[2020-01-07] MEDS: KETOROLAC TROMETHAMINE 15 MG/ML VIAL IM PRN ×3 (06:43→20:15)
[2020-01-07] MEDS: APIXABAN 2.5 MG TABLET PO SCH ×2 (09:03→21:49)
--- NOTE | 2020-01-07 10:34 | PN ---
Physical Exam: SUBJECTIVE: Patient seen and examined OBJECTIVE: Vital Signs Period Temp Pulse Resp BP Sys/Rayo Pulse Ox Last 24 Hr 98.0 F-98.8 F 82-114 20-20 116-130/55-80 98-99 GENERAL: The patient is awake, alert, and fully oriented, in no acute distress. LUNGS: Breath sounds equal, clear to auscultation bilaterally, no wheezes, no crackles, no accessory muscle use. HEART: Regular rate and rhythm, S1, S2 without murmur, rub or gallop. ABDOMEN: Soft, nontender, nondistended, normoactive bowel sounds, no guarding, no rebound, no hepatosplenomegaly, no masses. EXTREMITIES: 2+ pulses, warm, well-perfused, no edema. Laboratory Results - last 24 hr 01/05/20 01/05/20 01/06/20 16:00 16:20 12:43 WBC 2.3 L RBC 3.80 Hgb 9.8 L Hct 28.3 L D MCV 74.4 L MCH 25.8 MCHC 34.7 RDW 14.9 Plt Count 121 L MPV 7.6 Absolute Neuts (auto) 1.5 Neutrophils % 65.0 Neutrophils % (Manual) 59.8 Band Neutrophils % 4.1 Lymphocytes % 13.0 Lymphocytes % (Manual) 10.3 Monocytes % 17.0 H Monocytes % (Manual) 20 H Eosinophils % 4.6 H D Eosinophils % (Manual) 5.2 H Basophils % 0.4 Basophils % (Manual) 0.0 Myelocytes % (Man) 0 Promyelocytes % (Man) 0 Blast Cells % (Manual) 0 Nucleated RBC % 0 Metamyelocytes 0 Hypochromia 0 Platelet Estimate Decreased Platelet Comment Present Polychromasia 1+ Poikilocytosis 1+ Anisocytosis 1+ Microcytosis 1+ Macrocytosis 0 Ovalocytes 1+ Sodium Potassium Chloride Carbon Dioxide Anion Gap BUN Creatinine Est GFR (CKD-EPI)AfAm Est GFR (CKD-EPI)NonAf Random Glucose Calcium Phosphorus Magnesium Total Bilirubin AST ALT Alkaline Phosphatase Total Protein Albumin Sirolimus Cancelled COVID-19 (SG) Not detected 01/06/20 12:43 WBC RBC Hgb Hct MCV MCH MCHC RDW Plt Count MPV Absolute Neuts (auto) Neutrophils % Neutrophils % (Manual) Band Neutrophils % Lymphocytes % Lymphocytes % (Manual) Monocytes % Monocytes % (Manual) Eosinophils % Eosinophils % (Manual) Basophils % Basophils % (Manual) Myelocytes % (Man) Promyelocytes % (Man) Blast Cells % (Manual) Nucleated RBC % Metamyelocytes Hypochromia Platelet Estimate Platelet Comment Polychromasia Poikilocytosis Anisocytosis Microcytosis Macrocytosis Ovalocytes Sodium 140 Potassium 3.1 L Chloride 107 Carbon Dioxide 20 L Anion Gap 12 BUN 7.8 Creatinine 0.4 L Est GFR (CKD-EPI)AfAm 151.00 Est GFR (CKD-EPI)NonAf 130.29 Random Glucose 94 Calcium 8.5 Phosphorus 2.8 Magnesium 1.7 L Total Bilirubin 0.4 AST 22 ALT 25 Alkaline Phosphatase 126 H Total Protein 5.8 L Albumin 2.8 L Sirolimus COVID-19 (SG) Active Medications Generic Name Dose Route Start Last Admin Trade Name Freq PRN Reason Stop Dose Admin Acetaminophen 650 mg 01/06/20 10:23 Tylenol - PO Q6H PRN Fever Or Pain Apixaban 2.5 mg 01/06/20 10:30 01/07/20 09:03 Eliquis - PO 2.5 mg BID TING Administration Diphenhydramine HCl 25 mg 01/06/20 13:05 01/07/20 03:33 Benadryl Injection - IVPUSH 25 mg BID PRN Administration NAUSEA Sodium Chloride 1,000 mls @ 75 mls/hr 01/06/20 01:15 01/07/20 03:47 Normal Saline - IV 75 mls/hr ASDIR TING Administration Ketorolac Tromethamine 15 mg 01/06/20 11:25 01/07/20 06:43 Toradol Injection - IM 01/11/20 11:24 15 mg Q6H PRN Administration PAIN LEVEL 7 - 10 Ondansetron HCl 4 mg 01/06/20 13:06 01/07/20 03:33 Zofran Injection IVPUSH 4 mg Q6H PRN Administration NAUSEA AND/OR VOMITING Vancomycin HCl 125 mg 01/06/20 18:00 01/07/20 06:37 Vancomycin Oral Solution PO 125 mg Q6HPO TING Administration ASSESSMENT/PLAN: 39yoF with 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 #Acute Diarrhea & Vomiting in setting of leukpenia, immunosuppressive Rx, recent Abx ANC>1000 IV hydration on PO vancomycin, reporting no change in BM C-Dif Toxin -, Ag+, PCR for CDiff pending stool leukocyte, blood culture, stool culture no fever, pt appears euvolemic ID consult Pt asking to go home, refused labs today. 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 Visit type - Emergency Visit Emergency Visit: Yes ED Registration Date: 01/05/20 Care time: The patient presented to the Emergency Department on the above date and was hospitalized for further evaluation of their emergent condition. - New Patient This patient is new to me today: No - Critical Care Critical Care patient: No - Discharge Referral Referred to [facility] Med P.C.: No
--- NOTE | 2020-01-07 11:29 | PN ---
Progress Note (short form) - Note Progress Note: ID CONSULT DICTATED C DIFFICILE COLITIS CVID AUTOIMMUNE NEUTROPENIA PO VANCOMYCIN 125MG PO QID X 10D NO OBJECTION TO DISCHARGE WITH OUTPATIENT F/U
[2020-01-07] MEDS ORDERED: MAGNESIUM 2GM/50ML STERILE WATER IVPB IVPB ONE ×2 (12:15→14:45)
[2020-01-07 12:31] LABS: BASO % 0.3 % (0-2.0); EOS % 3.3 % (0-4.5); HEMATOCRIT 27.6 % (32.4-45.2); HEMOGLOBIN 9.7 GM/dL (10.7-15.3); LYMPH % 16.3 % (8-40); MCH 26.2 pg (25.7-33.7); MEAN CELL VOLUME 74.7 fl (80-96); MEAN PLT VOLUME 7.6 fl (7.5-11.1); MONO % 17.1 % (3.8-10.2); PLATELET COUNT 150 K/MM3 (134-434); RDW 14.7 % (11.6-15.6); WHITE BLOOD COUNT 2.9 K/mm3 (4.0-10.0)
[2020-01-07 13:07] LABS: ALBUMIN 2.6 g/dl (3.4-5.0); BILIRUBIN,TOTAL 0.2 mg/dL (0.2-1); CALCIUM 8.4 mg/dL (8.5-10.1); CREATININE 0.3 mg/dL (0.55-1.3); MAGNESIUM 1.6 mg/dL (1.8-2.4); POTASSIUM 3.2 mmol/L (3.5-5.1); TOT PROT 5.7 g/dl (6.4-8.2)
[2020-01-07 13:20] LABS: BLOOD UREA NITROGEN 2.6 mg/dL (7-18)
--- NOTE | 2020-01-07 13:48 | CONS ---
DATE OF CONSULTATION: DATE OF DICTATION: 01/07/2020 The patient is a 39-year-old female with a history of CVID (common variable immunodeficiency), chronic autoimmune neutropenia, and recent cellulitis of the left great toe, now evaluated for positive C difficile. She was admitted to the hospital on October 05, 2019, with a 5-day history of nausea, vomiting, loose bowel movements, and decreased oral. She was evaluated in the emergency room, where a CAT scan of the abdomen and pelvis was performed which showed a thickened sigmoid colon as well as descending and transverse colon consistent with colitis. A C difficile was performed and was positive. Patient had recently completed a long course of an oral cephalosporin for cellulitis of the left great toe. She reports having multiple loose nonbloody bowel movements today. She denies any associated fever or chills. She has a complicated past medical history with recent prolonged hospitalizations. She reports being hospitalized for 6 months at [facility] for CVID. She reports being discharged in early October. Since that time, she reports being on prophylactic antibiotics as well as antibiotics for her toe infection. She is also maintained on immunosuppressive medication. Past medical history positive for CVID, membranous glomerulonephritis, autoimmune neutropenia, hypertension, hyperlipidemia, asthma, DVT, pulmonary embolism. Allergies to THEOPHYLLINE, REGLAN, FLAGYL. Medications include sirolimus, lisinopril, fenofibrate, acyclovir, Zithromax, fluconazole, prednisone 7 mg, amantadine. SOCIAL HISTORY: She resides in the community. Nonsmoker, nondrinker. SYSTEMS REVIEW: Neurologic: No loss of consciousness, seizure activity, focal weakness. Cardiac: Negative chest pain or palpitations. Respiratory: Negative cough or sputum production. Gastrointestinal: As per HPI. Genitourinary: Negative for urinary tract infection. LABORATORY DATA: White count 2.3, 65 neutrophils, 4 bands, 13 lymphocytes, 17 monocytes, hematocrit 38.2, platelets 121, creatinine 0.4. Urinalysis: 8 white cells. Chest x-ray: Negative urine. Culture grew 20 to 30 colonies of Enterococcus faecalis. PHYSICAL EXAMINATION: General: She is awake and alert, she is pale, she appeared chronically ill, not acutely toxic. Vital Signs: Temperature 98.2. Blood pressure 124/71. Pulse 97, regular. Respirations 20 per minute. Eyes: Sclerae anicteric. Heart Sounds: S1, S2. Lungs: Clear. Abdomen: Soft. Mild diffuse tenderness. Extremities: Negative for edema. No significant erythema noted, left great toe. IMPRESSION: 1. Clostridium difficile colitis. 2. Common variable immunodeficiency. 3. Autoimmune neutropenia, chronic. 4. Positive urine culture consistent with contamination. 5. Status post recent cellulitis of the left great toe. Advised treatment with vancomycin 125 mg p.o. 4 times daily for 10-day course. No systemic antibiotics at this time. No objection to outpatient followup. Thank you for the kind referral. SINA FREEDMAN M.D. [id number]
[2020-01-07 14:17] VITALS: BMI 18.8
[2020-01-07 15:09] LABS: ANISOCYTOSIS 0; MACROCYTOSIS 0; PLATELET ESTIMATE DECREASED
[2020-01-07] MEDS: KCL 10 MEQ IVPB 10 MEQ/100 ML INFUS.BAG IVPB SCH ×3 (16:55→19:59)
[2020-01-07] MEDS: ACETAMINOPHEN 325 MG TABLET (FP) PO PRN (17:10)
[2020-01-07] MEDS ORDERED: MORPHINE SULFATE 2 MG/ML VIAL IVPUSH ONE (22:09)
[2020-01-07] MEDS: PIPERACILLIN/TAZOB 3.375 GM 3.375 GM in DEXTROSE 5%-WATER - 50 ML IVPB SCH (22:51)
[2020-01-08] MEDS: VANCOMYCIN 250 MG/5 ML ORAL SOLUTION PO SCH ×3 (05:34→17:26)
[2020-01-08] MEDS: KETOROLAC TROMETHAMINE 15 MG/ML VIAL IM PRN (06:55)
[2020-01-08] MEDS ORDERED: AMINO ACIDS/PROTEIN HYDROLYS 30 ML LIQUID.PKT PO SCH (08:00)
[2020-01-08 08:48] LABS: HEMATOCRIT 26.9 % (32.4-45.2); HEMOGLOBIN 9.3 GM/dL (10.7-15.3); MCH 25.5 pg (25.7-33.7); MCHC 34.5 g/dl (32.0-36.0); MEAN CELL VOLUME 73.9 fl (80-96); MEAN PLT VOLUME 7.7 fl (7.5-11.1); PLATELET COUNT 168 K/MM3 (134-434); RBC 3.64 M/mm3 (3.60-5.2); RDW 15.4 % (11.6-15.6); WHITE BLOOD COUNT 2.8 K/mm3 (4.0-10.0)
[2020-01-08 08:56] LABS: ALBUMIN 2.4 g/dl (3.4-5.0); BILIRUBIN,TOTAL 0.2 mg/dL (0.2-1); CALCIUM 8.1 mg/dL (8.5-10.1); CREATININE 0.4 mg/dL (0.55-1.3); TOT PROT 5.2 g/dl (6.4-8.2)
[2020-01-08] MEDS: ACETAMINOPHEN 325 MG TABLET (FP) PO PRN (09:21)
[2020-01-08] MEDS: APIXABAN 2.5 MG TABLET PO SCH (09:21)
[2020-01-08] MEDS ORDERED: POTASSIUM CHLORIDE TABS 20 MEQ TABLET.ER (FP) PO ONE (10:00)
[2020-01-08 10:08] LABS: BLOOD UREA NITROGEN 2.2 mg/dL (7-18)
--- NOTE | 2020-01-08 11:50 | PN ---
Progress Note, Physician - Current Medication List Current Medications: Active Medications Acetaminophen (Tylenol -) 650 mg PO Q6H PRN PRN Reason: Fever Or Pain Last Admin: 01/08/20 09:21 Dose: 650 mg Documented by: Amino Acids (Prosource No Carb Liquid Pkt) 30 ml PO DAILY@0800 [facility] Last Admin: 01/08/20 09:21 Dose: 30 ml Documented by: Apixaban (Eliquis -) 2.5 mg PO BID [facility] Diphenhydramine HCl (Benadryl Injection -) 25 mg IVPUSH BID PRN PRN Reason: NAUSEA Last Admin: 01/08/20 09:27 Dose: 25 mg Documented by: Sodium Chloride (Normal Saline -) 1,000 mls @ 75 mls/hr IV ASDIR [facility] Last Admin: 01/07/20 16:57 Dose: 75 mls/hr Documented by: Potassium Chloride (Potassium Chloride 10 Meq Premix Ivpb -) 10 meq in 100 mls @ 100 mls/hr IVPB Q60M [facility] Stop: 01/08/20 11:59 Ketorolac Tromethamine (Toradol Injection -) 15 mg IM Q6H PRN PRN Reason: PAIN LEVEL 7 - 10 Stop: 01/11/20 11:24 Last Admin: 01/08/20 06:55 Dose: 15 mg Documented by: Vancomycin HCl (Vancomycin Oral Solution) 125 mg PO Q6HPO [facility] Last Admin: 01/08/20 05:34 Dose: 125 mg Documented by: - Objective Vital Signs: Vital Signs Temperature 98.6 F 01/08/20 06:00 Pulse Rate 106 H 01/08/20 06:00 Respiratory Rate 18 01/08/20 09:00 Blood Pressure 125/69 01/08/20 06:00 O2 Sat by Pulse Oximetry (%) 98 01/08/20 09:00 Labs: CBC, BMP 01/08/20 07:20 01/08/20 07:20 Assessment/Plan CVID, autoimmune neutropenia, autoimmune hemophilia, autoimmune membraneous glomerulonephritis, recurrent neutropenic fevers with long hospital stay at the [facility]. History of cardiomyopathy with biventricular failure in the setting of infection, DVT/PE. Normal hemodynamics with small pericardial effusion. No clinical signs of tamponade Fup echo to evaluate effusion Can resume home ACEI if no further contrast studies are planned. If no sig pericardial effusion on echo pt would be acceptable for discharge from cardiac standpoint
--- NOTE | 2020-01-08 12:48 | ECHO ---
Version: 1 Name: HEMAL SEPTEMBER Exam: Adult Echocardiogram Study Date: 01/08/2020, 12:00 PM Age: 39 Years MMode/2D Measurements & Calculations IVSd: 0.87 cm LVIDs: 2.6 cm LVIDd: 3.9 cm LVPWd: 0.83 cm LAV (MOD-bp): 31.0 ml ACS: 1.75 cm Ao root diam: 3.2 cm LVOT diam: 1.96 cm LA dimension: 2.39 cm Doppler Measurements & Calculations MV E max tyree: 87.4 cm/sec Med E/e': 19.5 MV A max tyree: 79.5 cm/sec Med Peak E' Tyree: 4.5 cm/sec MV E/A: 1.10 Lat E/e': 16.9 Lat Peak E' Tyree: 5.2 cm/sec Ao max P.7 mmHg ADAN(I,D): 3.0 cm Ao mean P.8 mmHg LV V1 mean: 61.1 cm/sec Ao V2 max: 108.6 cm/sec LV V1 mean P.81 mmHg TR max tyree: 203.6 cm/sec TR max P.6 mmHg Procedure A complete two-dimensional transthoracic echocardiogram was performed (2D, M-mode, Doppler and color flow Doppler). The patient was in a tachycardic rhythm during the exam. Left Ventricle The left ventricular size, thickness and function are normal. Ejection Fraction = 65%. E/A reversal consistent with but not diagnostic of poor LV compliance. The left ventricular wall motion is normal . Right Ventricle The right ventricle is normal in size and function. The right ventricular wall motion is normal. Atria Normal left and right atrial size and function. Mitral Valve The mitral valve is normal in structure and function. There is trace mitral regurgitation. Tricuspid Valve The tricuspid valve is normal in structure and function. There is mild tricuspid regurgitation. Righ t ventricular systolic pressure is 22 mmhg. Aortic Valve The aortic valve is normal in structure and function. Trace aortic regurgitation. Pulmonic Valve The pulmonic valve is normal in structure and function. Great Vessels The aortic root is normal size. Pericardium/Pleura Small pericardial effusion (<1cm). There are no echocardiographic indications of cardiac tamponade. There is no pleural effusion. Tech Comments TDS due to patient being very thin. Summary Statements The left ventricular size, thickness and function are normal The right ventricle is normal in size and function. There is trace mitral regurgitation. There is mild tricuspid regurgitation. Right ventricular systolic pressure is 22 mmhg. Trace aortic regurgitation. Small pericardial effusion (<1cm) There are no echocardiographic indications of cardiac tamponade. MD Jose De Jesus Carreon 01/08/2020, 12:48 PM Ordering Physician: Monica Young Referring Physician: MONICA YOUNG Performed By: Anai Mathur
[2020-01-08] MEDS: KCL 10 MEQ IVPB 10 MEQ/100 ML INFUS.BAG IVPB SCH ×2 (13:31→14:47)
--- NOTE | 2020-01-08 13:36 | CON.GI ---
Consult Consult Specialty:: GI Referred by:: Hospitalist Service Reason for Consultation:: Diarrhea - History of Present Illness Chief Complaint: Nausea, vomiting, diarrhea History of Present Illness: 39F adnmitted for evaluation of N//V/D. Has h/o CVID / autoimmune neutropenia and receives her care at [facility] (states that she is followed at [facility] but was referred to [facility] for continued managament.) Describes a prolonged hospital stay at the [facility] spanning from 06/21-09/18. believes that she had a colonoscopy 06/21 that was unrevealing. Asked to evaluate diarrhea. Noted C. Diff antigen + and if on PO Vanco. 4 loose BM's today. Less fecal urgency / incontinence. no rectal bleeding. Vomiting has resolved for several days now. CT scan revealed a question of distal colon colitis. Recent Abx course secondary to cellulitis of foot. - History Source History Provided By: Patient - Past Medical History [employer]: Yes: Migraine Pulmonary: Yes: Asthma Renal/: Yes: Other (membranous glomerulonephritis-remission) ...LMP: 10/30/18 ...: No Infectious Disease: Yes: Other (CVID / Autoimmune neutropenia) - Past Surgical History Past Surgical History: Yes: Appendectomy, Cholecystectomy Additional Surgical History: Sinus surgery, ear drumb repair b/l - Alcohol/Substance Use Hx Alcohol Use: No History of Substance Use: reports: None - Smoking History Smoking history: Never smoked Have you smoked in the past 12 months: No Aproximately how many cigarettes per day: 0 - Social History Usual Living Arrangement: With Significant Other ADL: Independent Place of : [facility] History of Recent Travel: No Home Medications - Allergies Allergies/Adverse Reactions: Allergies Allergy/AdvReac Type Severity Reaction Status Date / Time theophylline [Theophylline] Allergy Severe Verified 01/05/20 13:36 metoclopramide HCl Allergy Verified 01/05/20 13:36 [From Reglan] Metronidazole HCl Allergy Rash Verified 01/05/20 13:36 [From Flagyl] - Home Medications Home Medications: Ambulatory Orders Immun Glob G(IgG)/Pro/Iga 0-50 [Hizentra 2 Gram/10 ml Vial] 50 ml SQ WEEKLY #0 ml 04/04/12 Cyclosporine [Restasis] 1 drop OU BID 07/04/15 Mometasone/Formoterol [Dulera 100 Mcg-5 Mcg Inhaler] 2 puff IH BID 07/04/15 Ciprofloxacin HCl [Cipro] 500 mg PO BID #60 tablet 07/14/16 Valacyclovir HCl [Valtrex -] 500 mg PO BID #60 tablet 07/14/16 Family Medical History Other Family History: Mother: Alive: HTN / hyperlipidemia. Father: Alive: DM II. 4 brothers / 1 sister: sister with Crohn's and cholangiocarcinoma. No chil dren. No family history of colorectal cancer Review of Systems - Review of Systems Constitutional: denies: Chills Cardiovascular: denies: Chest Pain Respiratory: denies: Cough Gastrointestinal: reports: Diarrhea, Nausea, Vomiting. denies: Abdominal Pain, Rectal Bleeding Physical Exam-GI Vital Signs: Vital Signs Temperature 99.2 F 01/08/20 09:00 Pulse Rate 112 H 01/08/20 09:00 Respiratory Rate 18 01/08/20 09:00 Blood Pressure 140/88 01/08/20 09:00 O2 Sat by Pulse Oximetry (%) 100 01/08/20 09:00 Constitutional: Yes: Calm Eyes: No: Sclera Icterus Cardiovascular: Yes: Regular Rate and Rhythm Respiratory: Yes: CTA Bilaterally Gastrointestinal Inspection: No: Distention ...Auscultate: Yes: Normoactive Bowel Sounds, No Bowel Sounds ...Palpate: Yes: Soft. No: Hepatomegaly, Splenomegaly, Tenderness Edema: No (No LE edema) Neurological: Yes: Alert Labs: CBC, BMP 01/08/20 07:20 01/08/20 07:20 Problem List - Problems (1) Colitis Assessment/Plan: Being treated for C. Diff colitis Continue PO Vanco 125mg PO Q6H for 10 days Correct lytes Will need outpatient follow-up at tertiary care center ([facility] / ? [facility]) Avoid PPI Code(s): K52.9 - NONINFECTIVE GASTROENTERITIS AND COLITIS, UNSPECIFIED
--- NOTE | 2020-01-08 17:22 | DS ---
Physical Exam: SUBJECTIVE: Patient seen and examined OBJECTIVE: Vital Signs Period Temp Pulse Resp BP Sys/Rayo Pulse Ox Last 24 Hr 98.4 F-99.2 F 100-112 18-18 125-140/69-88 96-100 PHYSICAL EXAM GENERAL: The patient is awake, alert, and fully oriented, in no acute distress. HEAD: Normal with no signs of trauma. EYES: PERRL, extraocular movements intact, sclera anicteric, conjunctiva clear. ENT: Ears normal, nares patent, oropharynx clear without exudates, moist mucous membranes. NECK: Trachea midline, full range of motion, supple. LUNGS: Breath sounds equal, clear to auscultation bilaterally, no wheezes, no crackles, no accessory muscle use. HEART: Regular rate and rhythm, S1, S2 without murmur, rub or gallop. ABDOMEN: Soft, nontender, nondistended, normoactive bowel sounds, no guarding, no rebound, no hepatosplenomegaly, no masses. EXTREMITIES: 2+ pulses, warm, well-perfused, no edema. NEUROLOGICAL: Cranial nerves II through XII grossly intact. Normal speech, gait not observed. PSYCH: Normal mood, normal affect. SKIN: Warm, dry, normal turgor, no rashes or lesions noted. LABS Laboratory Results - last 24 hr 01/08/20 01/08/20 07:20 07:20 WBC 2.8 L RBC 3.64 Hgb 9.3 L Hct 26.9 L MCV 73.9 L MCH 25.5 L MCHC 34.5 RDW 15.4 Plt Count 168 MPV 7.7 Sodium 144 Potassium 3.0 L Chloride 111 H Carbon Dioxide 23 Anion Gap 10 BUN 2.2 L* Creatinine 0.4 L Est GFR (CKD-EPI)AfAm 151.00 Est GFR (CKD-EPI)NonAf 130.29 Random Glucose 96 Calcium 8.1 L Magnesium 2.0 Total Bilirubin 0.2 AST 17 ALT 22 Alkaline Phosphatase 129 H Total Protein 5.2 L Albumin 2.4 L HOSPITAL COURSE: Date of Admission:01/05/20 39 y/o female with PMX CVID (on Hizentra), membranous glomerlulonephritis, DVT/PE (on Eliquis), and left hip pain presenting with nausea, vomiting, and diarrhea for 5 days, CTAB suggestive of colitis, admitted and treated for C.diff. CTAB revealed thickening of barrett of the descending colon suggestive of colitis. Treated with 3 days of Vanc oral solution inpatient and discharged with prescriptions for 11 days of vancomycin. Patient clinically improved, with decreased episodes of diarrhea. She is clinically stable for discharge. She was discharged with prescriptions for 11 days of vancomycin and advised her to follow up with [facility] or [facility] gastroenterology for further evaluation and to follow up with Dr. Ryan Richmond, [facility] resources and service administration. Spoke to Dr. Richmond regarding patients eliquis dosage. He reported that initially patient was started on eliquis 2.5mg BID by Heme-onc for DVT/PE, he is unsure why 2.5mg, but would like to keep her on 2.5mg until he sees her next time. Date of Discharge: 01/08/20 Minutes to complete discharge: 36 Discharge Summary Problems reviewed: Yes Reason For Visit: COLITIS/PERICARDIAL EFFUSION Current Active Problems Colitis (Acute) Nausea & vomiting (Acute) Nausea and vomiting in adult (Acute) Pericardial effusion (Acute) Condition: Improved - Instructions Diet, Activity, Other Instructions: You came into the hospital for abdominal pain and diarrhea. You were treated with antibiotics for C Dif. Please continue vancomycin 125 mg 4 times a day for 11 more days Please STOP taking Azithromycin, it can worsen your diarrhea. Please continue to take your eliquis. Please discuss this further with your hand buffer. Please continue your home medications as prescribed Please follow up with your primary care provider, Dr. Harrell, in 1 week to monitor your improvement Imaging showed small amount of fluid in your heart tissues, Please follow up with your foundation maker or the one we have referred you to for further evaluation and management, within 2 week you will need further evaluation with endoscopy in a tertiary center, [facility] or [facility] gastroenterology Please follow up with Dr. Ryan Richmond, [facility] resources and service administration, Please call and make an appointment. If you have new, worsening, or concerning symptoms please return to the ED or call 911 Referrals: Ryan Lewis MD [Staff Physician] - (CVID, Cdif. further mgmt of ppx ) Carolin Harrell MD [Primary Care Provider] - 1 Week (needs further f/u with [facility]. holding basia ) Og Hardy MD [Staff Physician] - (s/p echo.) Disposition: HOME - Home Medications Comprehensive Discharge Medication List: Ambulatory Orders Acyclovir [Zovirax -] 1 tab PO DAILY 01/08/20 Apixaban [Eliquis] 1 tab PO BID 01/08/20 Cyclosporine/Chondroit Sulf A [Cyclosporine 0.1% in Klarity] 1 drop OU DAILY 01/08/20 Fenofibrate Nanocrystallized [Fenofibrate] 1 tab PO DAILY 01/08/20 Fluconazole 1 tab PO DAILY 01/08/20 Immun Glob G(IgG)/Pro/Iga 0-50 [Hizentra 1 Gram/5 ml Vial] 12 grams SQ WEEKLY 01/08/20 LORazepam [Ativan] 1 tab PO Q6H PRN 01/08/20 Lisinopril 1 tab PO DAILY 01/08/20 Memantine HCl 1 tab PO BID 01/08/20 Brunswick-3/Dha/Epa/Fish Oil [Brunswick 3 500 Softgel] 2 grams PO TID 01/08/20 Ondansetron HCl [Zofran] 1 tab PO Q8H PRN 01/08/20 Oxycodone HCl [Roxicodone] 1 tab PO Q4H PRN 01/08/20 Pantoprazole Sodium 1 tab PO DAILY 01/08/20 Prednisone 7 grams PO DAILY 01/08/20 Pregabalin 1 cap PO BID 01/08/20 Sirolimus 3.5 mg PO DAILY 01/08/20 Vancomycin Oral Solution 125 mg PO Q6HPO 11 Days #220 ml 01/08/20 traZODone HCL [Trazodone HCl] 1 tab PO HS PRN 01/08/20 This patient is new to me today: No Emergency Visit: Yes ED Registration Date: 01/05/20 Care time: The patient presented to the Emergency Department on the above date and was hospitalized for further evaluation of their emergent condition. Critical Care patient: No - Discharge Referral Referred to [facility] Med P.C.: No ATTENDING PHYSICIAN STATEMENT I saw and evaluated the patient. I reviewed the resident's note and discussed the case with the resident. I agree with the resident's findings and plan as documented. SUBJECTIVE: OBJECTIVE: ASSESSMENT AND PLAN:
[2020-01-08] MEDS: SODIUM CHLORIDE 1,000 ML IV SCH (17:26)
[2020-01-08 17:37] VITALS: BP 133/83; PULSE 114; TEMP 99
--- NOTE | 2020-01-08 18:49 | PN ---
Teaching Attending Note Name of Resident: Aleisha Wright ATTENDING PHYSICIAN STATEMENT I saw and evaluated the patient. I reviewed the resident's note and discussed the case with the resident. I agree with the resident's findings and plan as documented. SUBJECTIVE: Feels well, no complaints. OBJECTIVE: Tmax 99, Hemodynamicaly Stable. Last Vital Signs Temp Pulse Resp BP Pulse Ox 99 F 114 H 20 133/83 100 01/08/20 16:30 01/08/20 16:30 01/08/20 16:30 01/08/20 16:30 01/08/20 14:00 GENERAL: AAO x 3 LUNGS: Good air entry bilaterally, clear to auscultation HEART: S1, S2, RRR ABDOMEN: Soft, non-tender, bowel sounds normal. EXTREMITIES: No calf tenderness, no edema Laboratory Results - last 24 hr 01/08/20 01/08/20 07:20 07:20 WBC 2.8 L RBC 3.64 Hgb 9.3 L Hct 26.9 L MCV 73.9 L MCH 25.5 L MCHC 34.5 RDW 15.4 Plt Count 168 MPV 7.7 Sodium 144 Potassium 3.0 L Chloride 111 H Carbon Dioxide 23 Anion Gap 10 BUN 2.2 L* Creatinine 0.4 L Est GFR (CKD-EPI)AfAm 151.00 Est GFR (CKD-EPI)NonAf 130.29 Random Glucose 96 Calcium 8.1 L Magnesium 2.0 Total Bilirubin 0.2 AST 17 ALT 22 Alkaline Phosphatase 129 H Total Protein 5.2 L Albumin 2.4 L Discharge Medications Medication Instructions Recorded Acyclovir [Zovirax -] 1 tab PO DAILY 01/08/20 Apixaban [Eliquis] 1 tab PO BID 01/08/20 Cyclosporine/Chondroit Sulf A 1 drop OU DAILY 01/08/20 [Cyclosporine 0.1% in [place]] Fenofibrate Nanocrystallized 1 tab PO DAILY 01/08/20 [Fenofibrate] Fluconazole 1 tab PO DAILY 01/08/20 Immun Glob G(IgG)/Pro/Iga 0-50 12 grams SQ WEEKLY 01/08/20 [Hizentra 1 Gram/5 ml Vial] LORazepam [Ativan] 1 tab PO Q6H PRN 01/08/20 Lisinopril 1 tab PO DAILY 01/08/20 Memantine HCl 1 tab PO BID 01/08/20 [place]-3/Dha/Epa/Fish Oil [[place] 3 2 grams PO TID 01/08/20 500 Softgel] Ondansetron HCl [Zofran] 1 tab PO Q8H PRN 01/08/20 Oxycodone HCl [Roxicodone] 1 tab PO Q4H PRN 01/08/20 Pantoprazole Sodium 1 tab PO DAILY 01/08/20 Prednisone 7 grams PO DAILY 01/08/20 Pregabalin 1 cap PO BID 01/08/20 Sirolimus 3.5 mg PO DAILY 01/08/20 Vancomycin Oral Solution 125 mg PO Q6HPO 11 Days #220 ml 01/08/20 traZODone HCL [Trazodone HCl] 1 tab PO HS PRN 01/08/20 ASSESSMENT AND PLAN: 39 year old female with 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 CT A/P - thickening of sigmoid colon wall suggestive of Colitis, small pericardial effusion 1. Acute Cdiff Colitis Improving with PO Vanco Afebrile, Hemodynamically Stable. Seen by GI and ID - cleared for discharge on PO Vanco for 10 days. Follow up with PCP and referral to tertiary care center if needed as per GI recommendations. 2. CVID on IVIG - follow with specialist as out-patient. 3. Migraine Headache - resolved. 4. History of DVT/PE - on Eliquis - continue. 5. History of Cardiomyopathy with biventricular failure - given only small pericardial effusion on echo, patient acceptable for discharge from cardiac standpoint. Cardiology follow up as out-patient. Medically Stable for discharge with Hematology and GI follow up.
[2020-01-08] MEDS ORDERED: APIXABAN 2.5 MG TABLET PO SCH (22:00)
== END 2020-01-08 18:43 | disposition home or self-care (01) | DRG 248 ==
LOC: JER 13:31 → JERBED 21:47 → J4W 01-06 00:11 → J8W 01-07 13:33
PROVIDERS: ADMIT Hospitalist
DX: A04.72 Enterocolitis due to Clostridium difficile, not specified as recurrent (principal); N05.2 Unspecified nephritic syndrome with diffuse membranous glomerulonephritis; M25.852 Other specified joint disorders, left hip; R63.0 Anorexia; Z68.1 Body mass index [BMI] 19.9 or less, adult; I31.3 Pericardial effusion (noninflammatory); D70.8 Other neutropenia; E87.6 Hypokalemia; R00.0 Tachycardia, unspecified; D68.311 Acquired hemophilia; G43.909 Migraine, unspecified, not intractable, without status migrainosus; F32.9 Major depressive disorder, single episode, unspecified; L08.9 Local infection of the skin and subcutaneous tissue, unspecified; I50.82 Biventricular heart failure; R11.2 Nausea with vomiting, unspecified; D83.9 Common variable immunodeficiency, unspecified; I42.8 Other cardiomyopathies; Z86.718 Personal history of other venous thrombosis and embolism; Z86.711 Personal history of pulmonary embolism
CPT/HCPCS: 36415; 71045-TC-FY; 74176-TC; 80053; 80299; 81003; 82550; 82728; 83605; 83615; 83690; 83735; 84100; 84443; 84484; 84703; 85025; 85027; 86140; 87040; 87045; 87046; 87086; 87186; 87205; 87324; 87449; 93005; 93010; 93306-TC; 99285-25; J0131; J1644; U0003